=== PATIENT | female | born 1975 | race Caucasian/White ===

== ENCOUNTER 2018-05-21 08:25 | Inpatient (IN) | payer SELFPAY ==
[2018-05-21] MEDS ORDERED: NORMAL SALINE 1000 ML 1,000 ML IV ONE ×3 (08:52→10:12)
[2018-05-21] MEDS ORDERED: ONDANSETRON HCL INJ/PF 4 MG/2 ML SDV IV ONE (09:04)
[2018-05-21 09:46] LABS: HEMOGLOBIN 12.9 g/dL (12.0-15.5); MEAN CORPUSCULAR HEMOGLOBIN 26.1 pg (27.0-33.4); MEAN CORPUSCULAR HGB CONC 33.1 g/dL (32.0-36.0); MEAN CORPUSCULAR VOLUME 79 fl (80-97); PLATELET COUNT 323 10^3/uL (150-450); RED BLOOD COUNT 4.96 10^6/uL (3.72-5.28); RED CELL DISTRIBUTION WIDTH 14.6 % (11.5-14.0); WHITE BLOOD COUNT 17.7 10^3/uL (4.0-10.5)
[2018-05-21 10:09] LABS: ALANINE AMINOTRANSFERASE 20 U/L (9-52); ALBUMIN 4.1 g/dL (3.5-5.0); ALKALINE PHOSPHATASE 108 U/L (38-126); ANION GAP 19 (5-19); ASPARTATE AMINO TRANSFERASE 19 U/L (14-36); BILIRUBIN,DIRECT 0.2 mg/dL (0.0-0.4); BILIRUBIN,TOTAL 1.1 mg/dL (0.2-1.3); BLOOD UREA NITROGEN 11 mg/dL (7-20); CALCIUM 8.9 mg/dL (8.4-10.2); GLUCOSE 135 mg/dL (75-110); LIPASE 25.9 U/L (23-300); TOTAL PROTEIN 7.2 g/dL (6.3-8.2)
[2018-05-21 10:15] LABS: CARBON DIOXIDE 23 mmol/L (22-30); CHLORIDE 99 mmol/L (98-107); SODIUM 140.6 mmol/L (137-145)
[2018-05-21 10:18] LABS: ABSOLUTE LYMPHOCYTES# (MANUAL) 0.7 10^3/uL (0.5-4.7); ABSOLUTE MONOCYTES # (MANUAL) 0.9 10^3/uL (0.1-1.4); ABSOLUTE NEUTROPHILS# (MANUAL) 16.1 10^3/uL (1.7-8.2); BAND NEUTROPHILS % (MANUAL) 3 % (3-5); BASOPHILS % (MANUAL) 0 % (0-2); EOSINOPHILS % (MANUAL) 0 % (0-6); LYMPHOCYTES % (MANUAL) 4 % (13-45); MONOCYTES % (MANUAL) 5 % (3-13); PLATELET COMMENT ADEQUATE; RBC MORPHOLOGY COMMENT NORMO-CYTIC/CHROMIC; SEGMENTED NEUTROPHILS % (MAN) 88 % (42-78); TOTAL CELLS COUNTED 100; TOXIC GRANULATION SLIGHT
[2018-05-21 10:28] LABS: AMORPHOUS SEDIMENT,URINE TRACE /HPF; APPEARANCE,URINE CLOUDY; BILIRUBIN,URINE NEGATIVE (NEGATIVE); COLOR,URINE YELLOW; GLUCOSE, URINE NEGATIVE (NEGATIVE); KETONES,URINE TRACE mg/dL (NEGATIVE); LEUKOCYTE ESTERASE,URINE LARGE (NEGATIVE); NITRITE,URINE NEGATIVE (NEGATIVE); PROTEIN,URINE NEGATIVE (NEGATIVE); URINE SPECIFIC GRAVITY 1.016; UROBILINOGEN,URINE NEGATIVE mg/dL (<2.0)
[2018-05-21] MEDS ORDERED: CEFTRIAXONE 1 GM/D5W RTU 1 GM/50 ML RTUPB IV ONE (11:41)
[2018-05-21] MEDS ORDERED: ERTAPENEM SODIUM INJ 1 GM VIAL IV ONE (12:49)
--- NOTE | 2018-05-21 12:50 | RADIOLOGY REPORT (SQ) ---
EXAM DESCRIPTION: CT ABD/PELVIS WITH IV ORAL COMPLETED DATE/TIME: 05/21/2018 12:10 pm REASON FOR STUDY: hx sbo . Diffuse abdominal pain. COMPARISON: CT abdomen and pelvis 03/17/2013, 01/18/2013. TECHNIQUE: CT scan of the abdomen and pelvis performed using helical scanning technique with dynamic intravenous contrast injection. No oral contrast. Images reviewed with lung, soft tissue, and bone windows. Reconstructed coronal and sagittal MPR images reviewed. Delayed images for evaluation of the urinary system also acquired. All images stored on PACS. All CT scanners at this facility use dose modulation, iterative reconstruction, and/or weight based d osing when appropriate to reduce radiation dose to as low as reasonably achievable (ALARA). [facility]: Dose Right [facility]: CareDose [facility]: Dose Right [facility]: Teradose 4D [facility]: [email or web address] CONTRAST TYPE AND DOSE: contrast/concentration: Isovue 370.00 mg/ml; Total Contrast Delivered: 100.0 ml; Total Saline Delivered: 72.0 ml RENAL FUNCTION: Creatinine 0.67 RADIATION DOSE: CT Rad equipment meets quality standard of care and radiation dose reduction techniq ues were employed. CTDIvol: 19.5 - 21.1 mGy. DLP: 2324 mGy-cm.. LIMITATIONS: None. FINDINGS: LOWER CHEST: No consolidation or pleural effusion. LIVER: The liver is enlarged measuring 24.8 cm in craniocaudal dimension and has diffuse decreased at tenuation suggestive of fatty infiltration. SPLEEN: Normal size. PANCREAS: No significant calcifications. No adjacent inflammation or peripancreatic fluid collections . Pancreatic duct not dilated. GALLBLADDER: No identified stones by CT criteria. No inflammatory changes to suggest cholecystitis. ADRENAL GLANDS: No significant masses or asymmetry. RIGHT KIDNEY AND URETER: There is severe hydronephrosis with cortical thinning at the right kidney. Obstructing calculus at the ureteropelvic junction there is measuring approximately 1.5 cm in length (424 Hounsfield units). There are layering calcifications at the right kidney measuring up to 1 cm. LEFT KIDNEY AND URETER: No significant calcifications. No hydronephrosis or hydroureter. AORTA AND VESSELS: No abdominal aortic aneurysm or evidence for dissection. Renal arteries, SMA, parish ac without stenosis. RETROPERITONEUM: No retroperitoneal adenopathy, hemorrhage or masses. BOWEL AND PERITONEAL CAVITY: Oral contrast is seen in the stomach and small bowel loops. There is pn eumoperitoneum. There is trace ascites. APPENDIX: Not visualized. PELVIS: The urinary bladder is partially distended. The uterus is present. ABDOMINAL WALL: There is a small fat containing ventral hernia at the left upper quadrant. There is a large loculated ventral hernia in the left lower abdominal wall. BONES: Degenerative disc disease with vacuum disc phenomenon at L5-S1. IMPRESSION: 1. Pneumoperitoneum, worrisome for bowel perforation. Surgical consultation recommende d. 2. Large loculated ventral hernia at the left lower abdominal wall with no CT evidence for bowel obst ruction at this time. 3. Severe right-sided hydronephrosis with cortical thinning at the right kidney and obstructing calcu tom at the right UPJ. Right nephrolithiasis. 4. Hepatomegaly. Fatty infiltration of the liver. 5. Trace ascites. COMMENT: Pertinent positive or negative findings of the imaging study reported as a CRITICAL EXAM t o Dr. Jones At12:45 hours on 05/21/2018. Category of Critical Exam: Pneumoperitoneum, worrisome for bowel perforation. Surgical consultation recommended. TECHNICAL DOCUMENTATION: JOB ID: [id number] Quality ID # [id number]: Final reports with documentation of one or more dose reduction techniques (e.g., Au tomated exposure control, adjustment of the mA and/or kV according to patient size, use of iterative reconstruction technique) 2010 [employer]- All Rights Reserved Reading location - IP/workstation name: [email or web address]
--- NOTE | 2018-05-21 13:34 | ER Document Report ---
ED General - General Chief Complaint: Abdominal Pain Stated Complaint: VOMITING Time Seen by Provider: 05/21/18 08:50 TRAVEL OUTSIDE OF THE [place] IN LAST 30 DAYS: No - HPI Patient complains to provider of: Abdominal pain vomiting Notes: Patient coming in with extensive past surgical history positive for hernia repair then mesh removal along with formation of small bowel obstruction. Patient states today increased abdominal pain whenever she moves along with nausea vomiting. Patient states normal bowel movement yesterday patient states decreased stooling as only passed gas once that she has been awake this morning. Patient upon my evaluation is obese otherwise looks to be resting - Related Data Allergies/Adverse Reactions: No Known Allergies Allergy (Verified 05/21/18 08:28) Past Medical History - Social History Smoking Status: Never Smoker Chew tobacco use (# tins/day): No Frequency of alcohol use: None Drug Abuse: None Family History: Reviewed & Not Pertinent Patient has suicidal ideation: No Patient has homicidal ideation: No - Past Medical History Cardiac Medical History: Denies: Hx Coronary Artery Disease, Hx Heart Attack, Hx Hypertension Pulmonary Medical History: Denies: Hx Asthma, Hx Bronchitis, Hx COPD, Hx Pneumonia, Hx Tuberculosis Neurological Medical History: Denies: Hx Cerebrovascular Accident, Hx Seizures Endocrine Medical History: Denies: Hx Diabetes Mellitus Type 1, Hx Diabetes Mellitus Type 2 Renal/ Medical History: Denies: Hx Peritoneal Dialysis GI Medical History: Reports: Hx Gastroesophageal Reflux Disease, Hx Hiatal Hernia Musculoskeletal Medical History: Reports Hx Arthritis - Back Psychiatric Medical History: Reports: Hx Depression Denies: Hx Schizophrenia Past Surgical History: Reports: Hx Abdominal Surgery - gangrene, Hx Section, Hx Herniorrhaphy, Hx Orthopedic Surgery - Carpel tunnel, Hx Tubal Ligation. Denies: Hx Hysterectomy, Hx Pacemaker - Immunizations Immunizations up to date: Yes Hx Diphtheria, Pertussis, Tetanus Vaccination: Yes Review of Systems - Review of Systems Constitutional: No symptoms reported EENT: No symptoms reported Cardiovascular: No symptoms reported Respiratory: No symptoms reported Gastrointestinal: Abdominal pain Genitourinary: No symptoms reported Female Genitourinary: No symptoms reported Musculoskeletal: No symptoms reported Skin: No symptoms reported Hematologic/Lymphatic: No symptoms reported Neurological/Psychological: No symptoms reported -: Yes All other systems reviewed and negative Physical Exam - Vital signs Vitals: Temp Pulse Resp BP Pulse Ox 98.5 F 100 22 H 124/73 96 05/21/18 08:29 07/20/18 08:29 05/21/18 08:29 05/21/18 08:29 05/21/18 08:29 Interpretation: Normal - General General appearance: Appears well, Alert - HEENT Head: Normocephalic, Atraumatic Eyes: Normal Pupils: PERRL - Respiratory Respiratory status: No respiratory distress Chest status: Nontender Breath sounds: Normal Chest palpation: Normal - Cardiovascular Rhythm: Regular Heart sounds: Normal auscultation Murmur: No - Abdominal Inspection: Normal Distension: No distension Bowel sounds: Normal Tenderness: Tender - Diffusely tender with with rebound Organomegaly: No organomegaly - Back Back: Normal, Nontender - Extremities General upper extremity: Normal inspection, Nontender, Normal color, Normal ROM , Normal temperature General lower extremity: Normal inspection, Nontender, Normal color, Normal ROM , Normal temperature, Normal weight bearing. No: Melisa's sign - Neurological Neuro grossly intact: Yes Cognition: Normal Orientation: AAOx4 [place] Coma Scale Eye Opening: Spontaneous [place] Coma Scale Verbal: Oriented [place] Coma Scale Motor: Obeys Commands [place] Coma Scale Total: 15 Speech: Normal Motor strength normal: LUE, RUE, LLE, RLE Sensory: Normal - Psychological Associated symptoms: Normal affect, Normal mood - Skin Skin Temperature: Warm Skin Moisture: Dry Skin Color: Normal Course - Re-evaluation Re-evalutation: 05/21/18 15:08 Patient laboratory studies showed leukocytosis with elevated lactic acid patient urinalysis also shows signs of infection therefore initially were a dose of Rocephin unfortunately I did become involved in a very critical pediatric patient's case because of diffuse abdominal pain and hyperactive bowel sounds and patient's history was concerned about possible small bowel obstruction therefore CT scan with oral and IV contrast. While involved in P education was later notified by [address] Shook the patient had free air and that she contacted surgeon Dr. Rayo I was able to step with the pediatric code to inform the family also notified by the nursing staff that the patient had not received her antibiotics yet did strongly encourage nurse to give antibiotics and wound to change these to Invanz. Patient CAT scan was then reviewed by myself also showing obstructing right ureteral stone causing significant hydronephrosis with the infectious signs to be seen in the urine I did contact the urologist also along with Dr. Rayo evaluated patient. Patientien will be taken to the OR underlying sepsis due to bowel perforation and obstructing kidney stone. - Vital Signs Vital signs: Temp Pulse Resp BP Pulse Ox 100.2 F 84 24 H 112/66 97 05/21/18 10:57 05/21/18 10:57 05/21/18 10:57 05/21/18 10:57 05/21/18 10:57 - Laboratory Result Diagrams: 05/21/18 09:21 05/21/18 09:21 Laboratory results interpreted by me: 05/21/18 05/21/18 05/21/18 08:46 09:21 09:21 WBC 17.7 H MCV 79 L MCH 26.1 L RDW 14.6 H Seg Neuts % (Manual) 88 H Lymphocytes % (Manual) 4 L Abs Neuts (Manual) 16.1 H Glucose 135 H Lactic Acid Urine Ketones TRACE H Urine Blood SMALL H Ur Leukocyte Esterase LARGE H 05/21/18 05/21/18 09:21 13:30 WBC MCV MCH RDW Seg Neuts % (Manual) Lymphocytes % (Manual) Abs Neuts (Manual) Glucose Lactic Acid 5.4 H 3.3 H Urine Ketones Urine Blood Ur Leukocyte Esterase Critical Care Note - Critical Care Note Total time excluding time spent on procedures (mins): 35 Comments: Patient requiring multiple consults with bowel perforation septic obstructing kidney stone Discharge - Discharge Clinical Impression: Free intraperitoneal air, Obstructing right-sided kidney stone, Sepsis UTI (urinary tract infection) Qualifiers: Urinary tract infection type: site unspecified Hematuria presence: with hematuria Qualified Code(s): N39.0 - Urinary tract infection, site not specified Condition: Fair Disposition: ADMITTED INPATIENT Admitting Provider: Surgicalist - [facility] Unit Admitted: ICU
[2018-05-21] MEDS ORDERED: FENTANYL CITRATE INJ/PF 250 MCG/5 ML AMPULE ONE (13:44)
[2018-05-21] MEDS ORDERED: MIDAZOLAM 2 MG/2 ML INJ ONE ×2 (13:45→22:04)
[2018-05-21] MEDS ORDERED: PROPOFOL INJ 200 MG/20 ML VIAL IV ONE (13:45)
[2018-05-21] MEDS ORDERED: ACETAMINOPHEN 1,000 MG/100 ML RTUPB IV ONE (13:45)
[2018-05-21] MEDS ORDERED: HYDROMORPHONE HCL INJ/PF 2 MG/ML AMPULE ONE ×2 (14:35→18:58)
[2018-05-21] MEDS ORDERED: ROCURONIUM BROMIDE INJ 50 MG/5 ML VIAL IV ONE (14:37)
[2018-05-21] MEDS ORDERED: SUCCINYLCHOLINE CHLORIDE INJ 200 MG/10 ML VIAL ONE (14:37)
[2018-05-21] MEDS ORDERED: PROMETHAZINE HCL INJ 25 MG/1 ML VIAL IV PRN (14:59)
[2018-05-21] MEDS ORDERED: FENTANYL CITRATE INJ/PF 100 MCG/2 ML AMPUL IV PRN ×3 (14:59)
[2018-05-21] MEDS ORDERED: DIPHENHYDRAMINE HCL 50 MG/ML VIAL IV PRN (14:59)
[2018-05-21] MEDS ORDERED: MEPERIDINE HCL/PF INJ 25 MG/1 ML DISP.SYRIN IV PRN (14:59)
--- NOTE | 2018-05-21 16:03 | PDOC CONSULTATION ---
History of Present Illness Admission Date/PCP: 05/21/18 13:58 NOVA SOTELO MD Patient complains of: abdominal pain History of Present Illness: RHEA HONG is a 43 year old female Past Medical History Cardiac Medical History: Denies: Coronary Artery Disease, Myocardial Infarction, Hypertension Pulmonary Medical History: Denies: Asthma, Bronchitis, Chronic Obstructive Pulmonary Disease (COPD), Pneumonia, Tuberculosis Neurological Medical History: Denies: Seizures Endocrine Medical History: Denies: Diabetes Mellitus Type 1, Diabetes Mellitus Type 2 GI Medical History: Reports: Gastroesophageal Reflux Disease, Hiatal Hernia Musculoskeltal Medical History: Reports: Arthritis - Back Psychiatric Medical History: Reports: Depression Hematology: Denies: Anemia Past Surgical History Past Surgical History: Reports: Section, Herniorrhaphy, Orthopedic Surgery - Carpel tunnel, Tubal Ligation Denies: Hysterectomy, Pacemaker Social History Smoking Status: Never Smoker Hx Recreational Drug Use: No Hx Prescription Drug Abuse: No - Advance Directive Resuscitation Status: Full Code Family History Family History: Reviewed & Not Pertinent Parental Family History Reviewed: No Children Family History Reviewed: No Sibling(s) Family History Reviewed.: No Medication/Allergy Home Medications: Ibuprofen 800 mg PO PRN PRN 09/20/15 Iron Pill 1 tab PO DAILY 09/20/15 Pantoprazole Sodium [Protonix] 40 mg PO DAILY 09/20/15 Cephalexin Monohydrate [Keflex 500 mg Capsule] 500 mg PO QID #28 capsule Allergies/Adverse Reactions: No Known Allergies Allergy (Verified 05/21/18 08:28) Physical Exam Vital Signs: Temp Pulse Resp BP Pulse Ox 100.2 F 84 24 H 112/66 97 05/21/18 10:57 05/21/18 10:57 05/21/18 10:57 05/21/18 10:57 05/21/18 10:57 Results Laboratory Results: WBC is elevated but Cr wnl, 0.65 CT showed thinned out parenchyma of right kidney and UPJ stone obstructing.Left kidney is normal urine analysis nitirites negative Impressions: Abdomen/Pelvis CT 05/21/18 00:00 IMPRESSION: 1. Pneumoperitoneum, worrisome for bowel perforation. Surgical consultation recommended. 2. Large loculated ventral hernia at the left lower abdominal wall with no CT evidence for bowel obstruction at this time. 3. Severe right-sided hydronephrosis with cortical thinning at the right kidney and obstructing calculus at the right UPJ. Right nephrolithiasis. 4. Hepatomegaly. Fatty infiltration of the liver. 5. Trace ascites. Assessment & Plan - Diagnosis (1) UTI (urinary tract infection) Qualifiers: Urinary tract infection type: site unspecified Hematuria presence: without hematuria Qualified Code(s): N39.0 - Urinary tract infection, site not specified Is this a current diagnosis for this admission?: No
--- NOTE | 2018-05-21 16:14 | Operative Report ---
Operative Report PREOPERATIVE DIAGNOSIS: obstructed right kidney POSTOPERATIVE DIAGNOSIS: same OPERATION: cystoscopy, attempt at right retrograde and insertion of double j catheter SURGEON: HEATHER SOLITARIO ANESTHESIA: GA TISSUE REMOVED OR ALTERED: none COMPLICATIONS: none ESTIMATED BLOOD LOSS: none INTRAOPERATIVE FINDINGS: clear efflux was coming from left orifice, none from right, bladder mucosa wnl. right ureteral orifice is fibrotic obstructed PROCEDURE: with the patient under GA and after proper scrubbing and draping the 21 cystoscope sheath was introduced into the bladder , normal mucosa, left orifice seen wit clear efflux, righr orifice identified , guide wire was tried , then another curved guide wire and then injection of contrast with ky jelly all maneuvers did not work so at this point we inserted marie catheter 16 F and waited for the general surgeon to take over.
--- NOTE | 2018-05-21 23:55 | OPERATIVE REPORT E ---
Operative Report NAME: RHEA HONG : 1975 AGE: 43Y DATE OF SURGERY: 05/21/2018 ROOM: ED07 PREOPERATIVE DIAGNOSIS: PERFORATED BOWEL. POSTOPERATIVE DIAGNOSIS: PERFORATED ASCENDING COLON WITH PERITONITIS. TWO INCISIONAL HERNIAS. OPERATION: 1. Right hemicolectomy. 2. Repair of incisional hernias. 3. Lysis of adhesions, at least 45 minutes. SURGEON: EROS HERNANDEZ M.D. ANESTHESIA: General. INDICATION: This is a 43-year-old female complaining of severe pains around 8:00 p.m. last night, 05/20/2018. Pains got worse. She went to the ED, where a CT scan showed free air of the abdomen. The patient has diffuse tenderness from rebound. She was then immediately taken to the OR. PROCEDURE: She was then given general anesthesia. Dr. Michaels, the urologist, first did an attempted placement of right ureteral catheter. Unfortunately, he feels that this has been a chronic problem. The patient did have evidence of ureteral obstruction with hydronephrosis. The abdomen was then prepped and draped in the usual sterile fashion. Appropriate timeout was then called. A midline incision was then made from the xiphoid to the umbilicus. The fascia was then opened. The abdomen was explored with some difficulty because the patient has a large hernia in the lower abdomen just below the umbilicus and we went to that area initially. On further exploration, there appears to be an area of perforation in an area of the colon near the duodenum. Initially, I thought there was some perforation in the duodenum. However, further exploration of the duodenum with Marsha maneuver showed no perforation. The perforation was noted to be through the omentum. It was necessary to extend the incision distally below the umbilicus to have a better exposure of the perforated area. We eventually isolated the perforation at the area of the ascending colon and most of the splenic flexure. Most likely, perforations from diverticulitis since no evidence of incarcerated herniation was noted. There were a lot of food particles and light purulent material that was suctioned out. Eventually, the large bowel was better isolated. There was quite a big perforation that may have been initially loculated. The patient did have an area of light purulent material around the liver and most of the abdomen. The patient had a lot of adhesions. The large bowel was then followed towards the area of the cecum by lysing a lot of adhesions. Next, the small bowel was explored and the distal ileum appears to have previous resection with anastomosis and there is an area of valdemar. This area may not be ideal for anastomosis. Therefore, the distal ileum was then divided with an Endo-ABDOULAYE. The large intestine also was divided with an Endo-ABDOULAYE right at the area of the right transverse colon. The mesentery was then divided with the use of LigaSure. Next, the small bowel was then dissected and there was some difficulty dissecting around the area of the hernia site. Adhesions were lysed with some difficulty. No evidence of incarceration, however, was noted. There was a small amount of light purulent material. The small bowel was then dissected from the area of the ileum, all the way up into the ligament of Treitz, taking me at least 45 minutes to release the bowel. The abdominal cavity was then copiously irrigated with at least 6 liters of saline. An NG tube was placed by Anesthesia, and I positioned it into the distal stomach. Following this, the hernia sac at the lower abdomen was then dissected, and most of it excised. The large intestine was then anastomosed to the small intestine in a functional [id number] manner with valdemar and closed with a TA-60. Two sutures of 3-0 silk were placed at the distal end to prevent destruction of the staple line. Next, the mesentery was then closed with running suture using 2-0 Vicryl. Next, a Kevon-Garcia drain was then brought through stab wound in the right upper quadrant and brought to the area of the transverse colon, where the anastomosis is. There was an area of herniation close to the midepigastric area that was excised and the defect closed with [id number] suture using 0 Prolene. Next, the fascia was then closed with running suture using #1 Prolene starting at both ends and tying together in the area of the umbilicus site. There was some question of getting a good fascia at the lower abdomen and we were able to close the whole fascia with the bowel and not much pressure. The patient, however, needs to be followed closely in the intensive care unit to make sure she does not develop any compartment syndrome. At this point, the drain was then anchored to the skin with 2-0 Prolene and Wound Vac was used to cover the skin and subcu incision. We were able to use two large Wound Vac foams put end to end since the incision was quite long. The patient tolerated the procedure quite well. Estimated blood loss about 300 mL. Needle, instrument, and sponge count all correct. The patient was brought to the intensive care unit, intubated, in guarded condition. DICTATING PHYSICIAN: EROS HERNANDEZ M.D. [id number] PHY#: [id number] ID: [id number] JOB#: [id number] ACCT: [id number] cc:EROS HERNANDEZ M.D. >
[2018-05-22] MEDS ORDERED: NOREPINEPHRINE BITARTRATE INJ/PF 4 MG/4 ML SDV IV ONE (00:08)
[2018-05-22] MEDS ORDERED: ERTAPENEM SODIUM INJ 1 GM VIAL IV PRN (00:53)
[2018-05-22] MEDS ORDERED: ERTAPENEM SODIUM 1 GM in NORMAL SALINE 50 ML IV ONE (01:00)
[2018-05-22] MEDS: NORMAL SALINE 1000 ML 1,000 ML IV SCH ×4 (03:51→18:01)
[2018-05-22] MEDS: PROPOFOL 1,000 MG/100 ML INFUS..BTL IV PRN ×6 (03:52→22:07)
[2018-05-22] MEDS: MORPHINE SULFATE 10 MG/ML INJ IV PRN ×2 (03:53→22:20)
[2018-05-22 04:09] LABS: ABSOLUTE LYMPHOCYTES (AUTO) 1.5 10^3/uL (0.5-4.7); ABSOLUTE MONOCYTES (AUTO) 0.8 10^3/uL (0.1-1.4); BASOPHILS % (AUTO) 0.3 % (0-2); EOSINOPHILS % (AUTO) 0.1 % (0-6); HEMATOCRIT 37.3 % (36.0-47.0); HEMOGLOBIN 12.6 g/dL (12.0-15.5); LYMPHOCYTES % (AUTO) 10.4 % (13-45); MEAN CORPUSCULAR HEMOGLOBIN 26.8 pg (27.0-33.4); MEAN CORPUSCULAR HGB CONC 33.9 g/dL (32.0-36.0); MEAN CORPUSCULAR VOLUME 79 fl (80-97); MONOCYTES % (AUTO) 5.7 % (3-13); PLATELET COUNT 348 10^3/uL (150-450); RED BLOOD COUNT 4.71 10^6/uL (3.72-5.28); RED CELL DISTRIBUTION WIDTH 15.3 % (11.5-14.0); SEGMENTED NEUTROPHILS % (AUTO) 83.5 % (42-78); TOTAL CELLS COUNTED % (AUTO) 100 %; WHITE BLOOD COUNT 14.3 10^3/uL (4.0-10.5)
[2018-05-22 04:21] LABS: ALANINE AMINOTRANSFERASE 44 U/L (9-52); ALBUMIN 2.3 g/dL (3.5-5.0); ALKALINE PHOSPHATASE 71 U/L (38-126); ANION GAP 11 (5-19); ASPARTATE AMINO TRANSFERASE 43 U/L (14-36); BILIRUBIN,DIRECT 0.4 mg/dL (0.0-0.4); BILIRUBIN,TOTAL 1.1 mg/dL (0.2-1.3); BLOOD UREA NITROGEN 13 mg/dL (7-20); CALCIUM 7.1 mg/dL (8.4-10.2); CARBON DIOXIDE 21 mmol/L (22-30); CHLORIDE 107 mmol/L (98-107); GLUCOSE 155 mg/dL (75-110); POTASSIUM 4.2 mmol/L (3.6-5.0); SODIUM 138.8 mmol/L (137-145); TOTAL PROTEIN 4.8 g/dL (6.3-8.2)
[2018-05-22] MEDS: PANTOPRAZOLE SODIUM 40 MG VIAL IV SCH ×2 (09:49→22:04)
[2018-05-22] MEDS: ENOXAPARIN SODIUM INJ 40 MG/0.4 ML DISP.SYRIN SUBCUT SCH (09:50)
[2018-05-22] MEDS: DEXTROSE 5%-WATER 250 ML with NOREPINEPHRINE BITARTRATE 4 MG IV PRN ×2 (10:45)
--- NOTE | 2018-05-22 20:30 | PDOC PROGRESS REPORT ---
Subjective Progress Note for:: 05/22/18 Subjective:: Still intubated Reason For Visit: PERFORATED ASCENDING COLON DUE TO DIVERTICULITIS Physical Exam Vital Signs: Temp Pulse Resp BP Pulse Ox 100.7 F H 90 13 103/67 100 05/22/18 20:00 05/22/18 18:21 05/22/18 18:21 05/22/18 18:21 05/22/18 18:21 Intake & Output 05/21/18 05/22/18 05/23/18 06:59 06:59 06:59 Intake Total 8120 2169 Output Total 6255 465 Balance 1865 1704 Weight 104.8 kg Exam: abd is soft. Wound Vac in place Results Laboratory Results: 05/22/18 03:51 05/22/18 03:51 05/22/18 05/22/18 05/22/18 03:51 03:51 03:51 WBC 14.3 H RBC 4.71 Hgb 12.6 Hct 37.3 MCV 79 L MCH 26.8 L MCHC 33.9 RDW 15.3 H Plt Count 348 Seg Neutrophils % 83.5 H Lymphocytes % 10.4 L Monocytes % 5.7 Eosinophils % 0.1 Basophils % 0.3 Absolute Neutrophils 12.0 H Absolute Lymphocytes 1.5 Absolute Monocytes 0.8 Absolute Eosinophils 0.0 Absolute Basophils 0.0 Sodium 138.8 Potassium 4.2 Chloride 107 Carbon Dioxide 21 L Anion Gap 11 BUN 13 Creatinine 0.83 Est GFR ( Amer) > 60 Est GFR (Non-Af Amer) > 60 Glucose 155 H Calcium 7.1 L Total Bilirubin 1.1 AST 43 H ALT 44 Alkaline Phosphatase 71 Total Protein 4.8 L Albumin 2.3 L Triglycerides 269 H Impressions: Abdomen/Pelvis CT 05/21/18 00:00 IMPRESSION: 1. Pneumoperitoneum, worrisome for bowel perforation. Surgical consultation recommended. 2. Large loculated ventral hernia at the left lower abdominal wall with no CT evidence for bowel obstruction at this time. 3. Severe right-sided hydronephrosis with cortical thinning at the right kidney and obstructing calculus at the right UPJ. Right nephrolithiasis. 4. Hepatomegaly. Fatty infiltration of the liver. 5. Trace ascites. Assessment & Plan - Time Time Spent with patient: 15-24 minutes - Plan Summary Plan Summary: Have consulted and D/W hospitalist Dr Toure. They will take care of the Vent and medical issues. Patient is fairly stable right now Continue IV antibiotics. Hospitalist will change antibiotics for better coverage with Zosyn
[2018-05-22] MEDS ORDERED: ERTAPENEM SODIUM 1 GM in NORMAL SALINE 50 ML IV SCH (22:00)
[2018-05-23] MEDS: PROPOFOL 1,000 MG/100 ML INFUS..BTL IV PRN ×8 (00:14→21:36)
[2018-05-23] MEDS: NORMAL SALINE 1000 ML 1,000 ML IV SCH ×4 (00:15→17:03)
[2018-05-23 04:48] LABS: ABSOLUTE BASOPHILS # (AUTO) 0.1 10^3/uL (0.0-0.2); ABSOLUTE EOSINOPHILS # (AUTO) 0.1 10^3/uL (0.0-0.6); ABSOLUTE LYMPHOCYTES (AUTO) 1.5 10^3/uL (0.5-4.7); ABSOLUTE MONOCYTES (AUTO) 0.8 10^3/uL (0.1-1.4); ABSOLUTE NEUT (AUTO) 8.3 10^3/uL (1.7-8.2); BASOPHILS % (AUTO) 0.7 % (0-2); EOSINOPHILS % (AUTO) 0.7 % (0-6); HEMATOCRIT 29.5 % (36.0-47.0); HEMOGLOBIN 9.9 g/dL (12.0-15.5); LYMPHOCYTES % (AUTO) 14.3 % (13-45); MEAN CORPUSCULAR HEMOGLOBIN 26.5 pg (27.0-33.4); MEAN CORPUSCULAR HGB CONC 33.6 g/dL (32.0-36.0); MEAN CORPUSCULAR VOLUME 79 fl (80-97); MONOCYTES % (AUTO) 7.3 % (3-13); PLATELET COUNT 267 10^3/uL (150-450); RED BLOOD COUNT 3.74 10^6/uL (3.72-5.28); RED CELL DISTRIBUTION WIDTH 15.3 % (11.5-14.0); TOTAL CELLS COUNTED % (AUTO) 100 %; WHITE BLOOD COUNT 10.8 10^3/uL (4.0-10.5)
[2018-05-23 04:52] LABS: ARTERIAL BLOOD BASE EXCESS 0 mmol/L; ARTERIAL BLOOD H2CO3 1.23 mmol/L (1.05-1.35); ARTERIAL BLOOD HCO3 24.8 mmol/L (20-26); ARTERIAL BLOOD O2 SATURATION 98.2 % (94-98); ARTERIAL BLOOD PCO2 40.7 mmHg (35-45); ARTERIAL BLOOD PO2 114.9 mmHg (80-100)
[2018-05-23 04:54] LABS: ALANINE AMINOTRANSFERASE 28 U/L (9-52); ALBUMIN 2.2 g/dL (3.5-5.0); ALKALINE PHOSPHATASE 89 U/L (38-126); ANION GAP 8 (5-19); ASPARTATE AMINO TRANSFERASE 25 U/L (14-36); BILIRUBIN,DIRECT 0.3 mg/dL (0.0-0.4); BILIRUBIN,TOTAL 0.3 mg/dL (0.2-1.3); BLOOD UREA NITROGEN 12 mg/dL (7-20); CARBON DIOXIDE 23 mmol/L (22-30); CHLORIDE 108 mmol/L (98-107); GLUCOSE 121 mg/dL (75-110); POTASSIUM 3.6 mmol/L (3.6-5.0); SODIUM 138.8 mmol/L (137-145); TOTAL PROTEIN 4.7 g/dL (6.3-8.2)
[2018-05-23 05:02] LABS: ARTERIAL BLOOD FIO2 30%
[2018-05-23 05:09] LABS: CALCIUM 6.7 mg/dL (8.4-10.2)
[2018-05-23] MEDS: DEXTROSE 5%-WATER 250 ML with NOREPINEPHRINE BITARTRATE 4 MG IV PRN ×2 (05:12)
[2018-05-23] MEDS: PANTOPRAZOLE SODIUM 40 MG VIAL IV SCH ×2 (09:16→21:57)
[2018-05-23] MEDS: ENOXAPARIN SODIUM INJ 40 MG/0.4 ML DISP.SYRIN SUBCUT SCH (09:17)
[2018-05-23] MEDS: PIPERACILLIN SODIUM/TAZOBACTAM 4.5 GM in NORMAL SALINE 100 ML IV SCH ×2 (11:52→17:02)
--- NOTE | 2018-05-23 14:15 | RADIOLOGY REPORT (SQ) ---
EXAM DESCRIPTION: CHEST SINGLE VIEW COMPLETED DATE/TIME: 05/23/2018 12:31 pm REASON FOR STUDY: ET and NG Tube Placement COMPARISON: 07/13/2013. EXAM PARAMETERS: NUMBER OF VIEWS: One view. TECHNIQUE: Single frontal radiographic view of the chest acquired. RADIATION DOSE: NA LIMITATIONS: None. FINDINGS: LUNGS AND PLEURA: No acute infiltrate or effusion. MEDIASTINUM AND HILAR STRUCTURES: No masses. Contour normal. HEART AND VASCULAR STRUCTURES: Cardiomegaly. No acute infiltrates or effusions. BONES: No acute findings. HARDWARE: Endotracheal tube in right mainstem bronchus. The tube could be retracted 2 cm. NG tube overlying stomach. OTHER: No other significant finding. IMPRESSION: Cardiomegaly. Endotracheal tube low in position. A could be retracted 2 cm NG tube in good position. COMMENT: Attempts to contact the Radiology Department, the hospitalist phone number listed on the re quest were unsuccessful. TECHNICAL DOCUMENTATION: JOB ID: [id number] [email or web address]- All Rights Reserved Reading location - IP/workstation name: [email or web address]
--- NOTE | 2018-05-23 16:20 | PDOC PROGRESS REPORT ---
Subjective Progress Note for:: 05/23/18 Subjective:: Patient is resting in bed she is on full mechanical ventilation. She is postop #2. Operated for ascending colon perforation and peritonitis. Her vital signs are stable and she has been producing adequate urine. Her antibiotics is switched from ertapenem to Zosyn. Reason For Visit: PERFORATED ASCENDING COLON DUE TO DIVERTICULITIS Physical Exam Vital Signs: Temp Pulse Resp BP Pulse Ox 100.4 F 79 20 103/55 L 100 05/23/18 12:00 05/23/18 10:00 05/23/18 14:12 05/23/18 14:12 05/23/18 14:12 Intake & Output 05/22/18 05/23/18 05/24/18 06:59 06:59 06:59 Intake Total 8120 4405 Output Total 6255 1125 465 Balance 1865 3280 -465 Weight 104.8 kg 107.2 kg Results Laboratory Results: 05/23/18 04:25 05/23/18 04:25 05/22/18 05/23/18 05/23/18 03:51 04:25 04:25 WBC 10.8 H RBC 3.74 Hgb 9.9 L D Hct 29.5 L MCV 79 L MCH 26.5 L MCHC 33.6 RDW 15.3 H Plt Count 267 Seg Neutrophils % 77.0 Lymphocytes % 14.3 Monocytes % 7.3 Eosinophils % 0.7 Basophils % 0.7 Absolute Neutrophils 8.3 H Absolute Lymphocytes 1.5 Absolute Monocytes 0.8 Absolute Eosinophils 0.1 Absolute Basophils 0.1 Carbonic Acid HCO3/H2CO3 Ratio ABG pH ABG pCO2 ABG pO2 ABG HCO3 ABG O2 Saturation ABG Base Excess FiO2 Sodium 138.8 Potassium 3.6 Chloride 108 H Carbon Dioxide 23 Anion Gap 8 BUN 12 Creatinine 0.69 Est GFR ( Amer) > 60 Est GFR (Non-Af Amer) > 60 Glucose 121 H Calcium 6.7 L* Ionized Calcium Vinny Total Bilirubin 0.3 AST 25 ALT 28 Alkaline Phosphatase 89 Total Protein 4.7 L Albumin 2.2 L Triglycerides 269 H 05/23/18 05/23/18 04:40 08:17 WBC RBC Hgb Hct MCV MCH MCHC RDW Plt Count Seg Neutrophils % Lymphocytes % Monocytes % Eosinophils % Basophils % Absolute Neutrophils Absolute Lymphocytes Absolute Monocytes Absolute Eosinophils Absolute Basophils Carbonic Acid 1.23 HCO3/H2CO3 Ratio 20:1 ABG pH 7.40 ABG pCO2 40.7 ABG pO2 114.9 H ABG HCO3 24.8 ABG O2 Saturation 98.2 H ABG Base Excess 0 FiO2 30% Sodium Potassium Chloride Carbon Dioxide Anion Gap BUN Creatinine Est GFR ( Amer) Est GFR (Non-Af Amer) Glucose Calcium Ionized Calcium Vinny 1.01 L Total Bilirubin AST ALT Alkaline Phosphatase Total Protein Albumin Triglycerides Impressions: Abdomen/Pelvis CT 05/21/18 00:00 IMPRESSION: 1. Pneumoperitoneum, worrisome for bowel perforation. Surgical consultation recommended. 2. Large loculated ventral hernia at the left lower abdominal wall with no CT evidence for bowel obstruction at this time. 3. Severe right-sided hydronephrosis with cortical thinning at the right kidney and obstructing calculus at the right UPJ. Right nephrolithiasis. 4. Hepatomegaly. Fatty infiltration of the liver. 5. Trace ascites. Chest X-Ray 05/23/18 12:11 IMPRESSION: Cardiomegaly. Endotracheal tube low in position. A could be retracted 2 cm NG tube in good position. Assessment & Plan - Diagnosis (1) Perforated ascending colon, peritonitis Is this a current diagnosis for this admission?: Yes Plan: Patient has been on normal saline at rate of 150 mL/h. Continue Zosyn (2) Rt Nephrolithiasis and hydronephrosis Is this a current diagnosis for this admission?: Yes Plan: Definitive management per urologist. (3) Complicated UTI (urinary tract infection) Is this a current diagnosis for this admission?: Yes Plan: Zosyn will take care of it.
--- NOTE | 2018-05-23 20:55 | PDOC PROGRESS REPORT ---
Subjective Progress Note for:: 05/23/18 Subjective:: Still intubated but fairly stable with good urine output. She is on POD 2. Post right hemicolectomy for perforated ascending colon likely due to diverticulitis Reason For Visit: PERFORATED ASCENDING COLON DUE TO DIVERTICULITIS Physical Exam Vital Signs: Temp Pulse Resp BP Pulse Ox 98.6 F 79 12 101/56 L 98 05/23/18 20:00 05/23/18 10:00 05/23/18 18:57 05/23/18 18:57 05/23/18 18:57 Intake & Output 05/22/18 05/23/18 05/24/18 06:59 06:59 06:59 Intake Total 8120 4405 2155 Output Total 6255 1125 800 Balance 1865 3280 1355 Weight 104.8 kg 107.2 kg Exam: Still intubated. abd is soft. Wound Vac over the whole incison in place. LUC drained 60 ccs serosanguinous fluid Results Laboratory Results: 05/23/18 04:25 05/23/18 04:25 05/23/18 05/23/18 05/23/18 04:25 04:25 04:40 WBC 10.8 H RBC 3.74 Hgb 9.9 L D Hct 29.5 L MCV 79 L MCH 26.5 L MCHC 33.6 RDW 15.3 H Plt Count 267 Seg Neutrophils % 77.0 Lymphocytes % 14.3 Monocytes % 7.3 Eosinophils % 0.7 Basophils % 0.7 Absolute Neutrophils 8.3 H Absolute Lymphocytes 1.5 Absolute Monocytes 0.8 Absolute Eosinophils 0.1 Absolute Basophils 0.1 Carbonic Acid 1.23 HCO3/H2CO3 Ratio 20:1 ABG pH 7.40 ABG pCO2 40.7 ABG pO2 114.9 H ABG HCO3 24.8 ABG O2 Saturation 98.2 H ABG Base Excess 0 FiO2 30% Sodium 138.8 Potassium 3.6 Chloride 108 H Carbon Dioxide 23 Anion Gap 8 BUN 12 Creatinine 0.69 Est GFR ( Amer) > 60 Est GFR (Non-Af Amer) > 60 Glucose 121 H Calcium 6.7 L* Ionized Calcium Vinny Total Bilirubin 0.3 AST 25 ALT 28 Alkaline Phosphatase 89 Total Protein 4.7 L Albumin 2.2 L 05/23/18 08:17 WBC RBC Hgb Hct MCV MCH MCHC RDW Plt Count Seg Neutrophils % Lymphocytes % Monocytes % Eosinophils % Basophils % Absolute Neutrophils Absolute Lymphocytes Absolute Monocytes Absolute Eosinophils Absolute Basophils Carbonic Acid HCO3/H2CO3 Ratio ABG pH ABG pCO2 ABG pO2 ABG HCO3 ABG O2 Saturation ABG Base Excess FiO2 Sodium Potassium Chloride Carbon Dioxide Anion Gap BUN Creatinine Est GFR ( Amer) Est GFR (Non-Af Amer) Glucose Calcium Ionized Calcium Vinny 1.01 L Total Bilirubin AST ALT Alkaline Phosphatase Total Protein Albumin Impressions: Abdomen/Pelvis CT 05/21/18 00:00 IMPRESSION: 1. Pneumoperitoneum, worrisome for bowel perforation. Surgical consultation recommended. 2. Large loculated ventral hernia at the left lower abdominal wall with no CT evidence for bowel obstruction at this time. 3. Severe right-sided hydronephrosis with cortical thinning at the right kidney and obstructing calculus at the right UPJ. Right nephrolithiasis. 4. Hepatomegaly. Fatty infiltration of the liver. 5. Trace ascites. Chest X-Ray 05/23/18 12:11 IMPRESSION: Cardiomegaly. Endotracheal tube low in position. A could be retracted 2 cm NG tube in good position. Assessment & Plan - Time Time Spent with patient: 15-24 minutes - Inpatient Certification Medical Necessity: Need For IV Fluids, Need For Continuous Telemetry Monitoring , Need for IV Antibiotics, Other - Intubated - Plan Summary Plan Summary: Hopefully can be extubated tomorrow Continue NGT and antibiotics
[2018-05-23] MEDS: MORPHINE SULFATE 10 MG/ML INJ IV PRN (21:57)
--- NOTE | 2018-05-23 22:53 | RADIOLOGY REPORT (SQ) ---
EXAM DESCRIPTION: CHEST SINGLE VIEW COMPLETED DATE/TIME: 05/23/2018 10:12 pm REASON FOR STUDY: ETT placement COMPARISON: Chest x-ray 05/23/2018 at 12:16 hours EXAM PARAMETERS: NUMBER OF VIEWS: One view TECHNIQUE: Single frontal radiograph of the chest on 05/23/2018 at 22:03 hours. RADIATION DOSE: N/A LIMITATIONS: None. FINDINGS: TEMPORARY SUPPORT DEVICES:Low lying endotracheal tube with the tip at the alba oriented towards the right mainstem bronchus. An enteric tube courses along the midline and terminates under the diaphragm, its tip is not visualized on this exam. LUNGS AND PLEURA: There are bibasilar airspace opacities. No sizable pleural effusion or pneumothora x. MEDIASTINUM AND HILAR STRUCTURES: No masses. Contour normal. HEART AND VASCULAR STRUCTURES: The heart is enlarged. No overt vascular congestion. BONES: No acute findings. IMPRESSION: 1. Cardiomegaly. Bibasilar airspace opacities, may represent atelectasis or pneumonia. 2. Low lying endotracheal tube, retraction by 2-3 cm recommended. RECOMMENDATIONS: Retraction of the endotracheal tube. COMMENT: Pertinent findings on the imaging study reported as a CRITICAL RESULT to EROS HERNANDEZ MD at22:46 hrs on 05/23/2018. Category of Critical Result: Low lying endotracheal tube. TECHNICAL DOCUMENTATION: JOB ID: [id number] [place]-64 2010 [employer]- All Rights Reserved Reading location - IP/workstation name: [email or web address]
[2018-05-24] MEDS: PIPERACILLIN SODIUM/TAZOBACTAM 4.5 GM in NORMAL SALINE 100 ML IV SCH ×5 (00:16→23:52)
[2018-05-24] MEDS: NORMAL SALINE 1000 ML 1,000 ML IV SCH ×4 (00:17→23:51)
--- NOTE | 2018-05-24 00:18 | RADIOLOGY REPORT (SQ) ---
EXAM DESCRIPTION: XR CHEST 1 VIEW COMPLETED DATE/TME: 05/23/2018 23:34 CLINICAL HISTORY: 43 years, Female, ETT placement COMPARISON: 05/23/2018 NUMBER OF VIEWS: One TECHNIQUE: AP view of the chest LIMITATIONS: None. FINDINGS: The endotracheal tube has been retracted and now terminates 3.1 cm above the alba. The nasogastric tube remains in satisfactory position. There is a retrocardiac airspace opacity. The heart is enlarged. There is no pneumothorax or pleural effusion. IMPRESSION: Satisfactory position of the endotracheal tube. Retrocardiac airspace opacity 2010 [employer]- All Rights Reserved
[2018-05-24 03:48] LABS: ABSOLUTE BASOPHILS # (AUTO) 0.1 10^3/uL (0.0-0.2); ABSOLUTE EOSINOPHILS # (AUTO) 0.2 10^3/uL (0.0-0.6); ABSOLUTE LYMPHOCYTES (AUTO) 1.3 10^3/uL (0.5-4.7); ABSOLUTE MONOCYTES (AUTO) 0.5 10^3/uL (0.1-1.4); ABSOLUTE NEUT (AUTO) 5.1 10^3/uL (1.7-8.2); BASOPHILS % (AUTO) 0.9 % (0-2); EOSINOPHILS % (AUTO) 3.1 % (0-6); HEMATOCRIT 25.5 % (36.0-47.0); HEMOGLOBIN 8.6 g/dL (12.0-15.5); LYMPHOCYTES % (AUTO) 17.6 % (13-45); MEAN CORPUSCULAR HEMOGLOBIN 26.8 pg (27.0-33.4); MEAN CORPUSCULAR HGB CONC 33.7 g/dL (32.0-36.0); MEAN CORPUSCULAR VOLUME 80 fl (80-97); MONOCYTES % (AUTO) 7.2 % (3-13); PLATELET COUNT 232 10^3/uL (150-450); RED BLOOD COUNT 3.21 10^6/uL (3.72-5.28); SEGMENTED NEUTROPHILS % (AUTO) 71.2 % (42-78); TOTAL CELLS COUNTED % (AUTO) 100 %; WHITE BLOOD COUNT 7.2 10^3/uL (4.0-10.5)
[2018-05-24 04:00] LABS: ANION GAP 9 (5-19); BLOOD UREA NITROGEN 9 mg/dL (7-20); CARBON DIOXIDE 20 mmol/L (22-30); CHLORIDE 112 mmol/L (98-107); GLUCOSE 89 mg/dL (75-110); POTASSIUM 3.3 mmol/L (3.6-5.0); SODIUM 140.5 mmol/L (137-145)
[2018-05-24 06:33] LABS: CALCIUM 6.7 mg/dL (8.4-10.2)
[2018-05-24] MEDS: ENOXAPARIN SODIUM INJ 40 MG/0.4 ML DISP.SYRIN SUBCUT SCH (10:13)
[2018-05-24] MEDS: PANTOPRAZOLE SODIUM 40 MG VIAL IV SCH ×2 (10:14→22:07)
--- NOTE | 2018-05-24 10:30 | PDOC PROGRESS REPORT ---
Subjective Progress Note for:: 05/24/18 Subjective:: Intubated and sedated. But when sedation has decreased patient has been awake and cooperative. Reason For Visit: PERFORATED ASCENDING COLON DUE TO DIVERTICULITIS Physical Exam Vital Signs: Temp Pulse Resp BP Pulse Ox 99.0 F 77 13 92/61 L 98 05/24/18 07:27 05/23/18 22:00 05/24/18 07:27 05/24/18 07:27 05/24/18 07:27 Intake & Output 05/23/18 05/24/18 05/25/18 06:59 06:59 06:59 Intake Total 4405 4559 Output Total 1125 1200 225 Balance 3280 3359 -225 Weight 107.2 kg 107.8 kg General appearance: PRESENT: no acute distress Respiratory exam: PRESENT: clear to auscultation chery Cardiovascular exam: PRESENT: RRR GI/Abdominal exam: PRESENT: other - Soft, nondistended, wound VAC in place. No apparent tenderness. Results Laboratory Results: 05/24/18 03:36 05/24/18 03:36 05/24/18 05/24/18 05/24/18 03:36 03:36 03:36 WBC 7.2 RBC 3.21 L Hgb 8.6 L Hct 25.5 L MCV 80 MCH 26.8 L MCHC 33.7 RDW 15.0 H Plt Count 232 Seg Neutrophils % 71.2 Lymphocytes % 17.6 Monocytes % 7.2 Eosinophils % 3.1 Basophils % 0.9 Absolute Neutrophils 5.1 Absolute Lymphocytes 1.3 Absolute Monocytes 0.5 Absolute Eosinophils 0.2 Absolute Basophils 0.1 Sodium 140.5 Potassium 3.3 L Chloride 112 H Carbon Dioxide 20 L Anion Gap 9 BUN 9 Creatinine 0.68 Est GFR ( Amer) > 60 Est GFR (Non-Af Amer) > 60 Glucose 89 Calcium 6.7 L* Albumin 1.9 L Impressions: Abdomen/Pelvis CT 05/21/18 00:00 IMPRESSION: 1. Pneumoperitoneum, worrisome for bowel perforation. Surgical consultation recommended. 2. Large loculated ventral hernia at the left lower abdominal wall with no CT evidence for bowel obstruction at this time. 3. Severe right-sided hydronephrosis with cortical thinning at the right kidney and obstructing calculus at the right UPJ. Right nephrolithiasis. 4. Hepatomegaly. Fatty infiltration of the liver. 5. Trace ascites. Chest X-Ray 05/23/18 23:34 IMPRESSION: Satisfactory position of the endotracheal tube. Retrocardiac airspace opacity 2010 [employer]- All Rights Reserved Assessment & Plan - Diagnosis (1) Perforated ascending colon, peritonitis Is this a current diagnosis for this admission?: Yes Plan: Status post right hemicolectomy. Patient looks good. She is off of pressors and has been hemodynamically stable with excellent urine output. Her H&H has decreased but likely due to hemodilution based upon decreased BUN, good urine output, and hemodynamic stability. Will take her off the sedation and will likely extubate today. will check h/h later today
[2018-05-24] MEDS ORDERED: POTASSI CL 20 MEQ/50 ML RIDER 20 MEQ/50 ML RTUPB IV ONE (12:20)
[2018-05-24] MEDS ORDERED: MORPHINE SULFATE 10 MG/ML INJ IV PRN (12:29)
[2018-05-24] MEDS: POTASSIUM CHLORIDE 20 MEQ/50 ML RTU IV SCH ×2 (14:38→16:57)
[2018-05-24 15:59] LABS: HEMATOCRIT 28.2 % (36.0-47.0); HEMOGLOBIN 9.4 g/dL (12.0-15.5); MEAN CORPUSCULAR HEMOGLOBIN 26.5 pg (27.0-33.4); MEAN CORPUSCULAR HGB CONC 33.5 g/dL (32.0-36.0); MEAN CORPUSCULAR VOLUME 79 fl (80-97); PLATELET COUNT 266 10^3/uL (150-450); RED BLOOD COUNT 3.57 10^6/uL (3.72-5.28); WHITE BLOOD COUNT 6.4 10^3/uL (4.0-10.5)
--- NOTE | 2018-05-24 16:41 | PDOC PROGRESS REPORT ---
Subjective Progress Note for:: 05/24/18 Subjective:: Patient has been doing good and improving steadily. She is currently off sedation and pressors. Her vital signs are within normal limits her labs also okay except anemia due to hemodilution and mild hypokalemia and moderately severe hyperkalemia and hypocalcemia. Later this morning patient is extubated and tolerated extubation Reason For Visit: PERFORATED ASCENDING COLON DUE TO DIVERTICULITIS Physical Exam Vital Signs: Temp Pulse Resp BP Pulse Ox 99.7 F 70 19 114/73 100 05/24/18 15:00 05/24/18 10:00 05/24/18 15:00 05/24/18 14:58 05/24/18 15:00 Intake & Output 05/23/18 05/24/18 05/25/18 06:59 06:59 06:59 Intake Total 4405 4559 Output Total 1125 1200 700 Balance 3280 3359 -700 Weight 107.2 kg 107.8 kg 107.8 kg General appearance: PRESENT: no acute distress Head exam: PRESENT: atraumatic Eye exam: PRESENT: conjunctiva pink Mouth exam: PRESENT: moist Neck exam: ABSENT: carotid bruit, JVD, lymphadenopathy, thyromegaly Respiratory exam: PRESENT: clear to auscultation chery. ABSENT: rales, rhonchi, wheezes Cardiovascular exam: PRESENT: RRR. ABSENT: diastolic murmur, rubs, systolic murmur GI/Abdominal exam: PRESENT: soft Results Laboratory Results: 05/24/18 15:54 05/24/18 03:36 05/24/18 05/24/18 05/24/18 03:36 03:36 03:36 WBC 7.2 RBC 3.21 L Hgb 8.6 L Hct 25.5 L MCV 80 MCH 26.8 L MCHC 33.7 RDW 15.0 H Plt Count 232 Seg Neutrophils % 71.2 Lymphocytes % 17.6 Monocytes % 7.2 Eosinophils % 3.1 Basophils % 0.9 Absolute Neutrophils 5.1 Absolute Lymphocytes 1.3 Absolute Monocytes 0.5 Absolute Eosinophils 0.2 Absolute Basophils 0.1 Sodium 140.5 Potassium 3.3 L Chloride 112 H Carbon Dioxide 20 L Anion Gap 9 BUN 9 Creatinine 0.68 Est GFR ( Amer) > 60 Est GFR (Non-Af Amer) > 60 Glucose 89 Calcium 6.7 L* Albumin 1.9 L 05/24/18 15:54 WBC 6.4 RBC 3.57 L Hgb 9.4 L Hct 28.2 L MCV 79 L MCH 26.5 L MCHC 33.5 RDW 15.0 H Plt Count 266 Seg Neutrophils % Lymphocytes % Monocytes % Eosinophils % Basophils % Absolute Neutrophils Absolute Lymphocytes Absolute Monocytes Absolute Eosinophils Absolute Basophils Sodium Potassium Chloride Carbon Dioxide Anion Gap BUN Creatinine Est GFR ( Amer) Est GFR (Non-Af Amer) Glucose Calcium Albumin Impressions: Abdomen/Pelvis CT 05/21/18 00:00 IMPRESSION: 1. Pneumoperitoneum, worrisome for bowel perforation. Surgical consultation recommended. 2. Large loculated ventral hernia at the left lower abdominal wall with no CT evidence for bowel obstruction at this time. 3. Severe right-sided hydronephrosis with cortical thinning at the right kidney and obstructing calculus at the right UPJ. Right nephrolithiasis. 4. Hepatomegaly. Fatty infiltration of the liver. 5. Trace ascites. Chest X-Ray 05/23/18 23:34 IMPRESSION: Satisfactory position of the endotracheal tube. Retrocardiac airspace opacity 2010 [employer]- All Rights Reserved Assessment & Plan - Diagnosis (1) Perforated ascending colon, peritonitis Is this a current diagnosis for this admission?: Yes Plan: Continue Zosyn. Further definitive management by her primary surgeon. (2) Rt Nephrolithiasis and hydronephrosis Is this a current diagnosis for this admission?: Yes Plan: Definitive management per urologist. (3) Complicated UTI (urinary tract infection) Is this a current diagnosis for this admission?: Yes Plan: Zosyn will take care of it. (4) Hypocalcemia Is this a current diagnosis for this admission?: Yes Plan: Repleted (5) Hypokalemia Is this a current diagnosis for this admission?: Yes Plan: Mild. Check BMP in a.m. and and SNTMNT K rider. - Time Time Spent with patient: 25-34 minutes
[2018-05-24] MEDS: MORPHINE SULFATE 10 MG/ML INJ IV PRN ×2 (18:24→22:06)
[2018-05-25] MEDS: PIPERACILLIN SODIUM/TAZOBACTAM 4.5 GM in NORMAL SALINE 100 ML IV SCH ×4 (06:37→23:32)
[2018-05-25 08:48] LABS: ANION GAP 11 (5-19); BLOOD UREA NITROGEN 6 mg/dL (7-20); CALCIUM 7.5 mg/dL (8.4-10.2); CARBON DIOXIDE 17 mmol/L (22-30); CHLORIDE 114 mmol/L (98-107); GLUCOSE 72 mg/dL (75-110); POTASSIUM 3.7 mmol/L (3.6-5.0); SODIUM 141.9 mmol/L (137-145)
[2018-05-25] MEDS: NORMAL SALINE 1000 ML 1,000 ML IV SCH (09:06)
[2018-05-25] MEDS: ENOXAPARIN SODIUM INJ 40 MG/0.4 ML DISP.SYRIN SUBCUT SCH (09:07)
[2018-05-25] MEDS: MORPHINE SULFATE 10 MG/ML INJ IV PRN ×3 (12:41→23:32)
[2018-05-25] MEDS: POTASSIUM CHLORIDE 20 MEQ/50 ML RTU IV SCH (13:05)
--- NOTE | 2018-05-25 13:32 | PDOC PROGRESS REPORT ---
Subjective Progress Note for:: 05/25/18 Subjective:: I seen patient resting in bed comfortably. She is awake alert and talking. She is status post extubation and she tolerates extubation. She complains of abdominal pain. Her CT scan shows severe right hydronephrosis due to large stone at right UPJ and I discussed this with , urologist who states that patient should come out of the acute situation before he proceeds to procedure. Reason For Visit: PERFORATED ASCENDING COLON DUE TO DIVERTICULITIS Physical Exam Vital Signs: Temp Pulse Resp BP Pulse Ox 99.1 F 83 21 H 108/67 98 05/25/18 12:00 05/25/18 12:00 05/25/18 12:00 05/25/18 12:00 05/25/18 12:00 Intake & Output 05/24/18 05/25/18 05/26/18 06:59 06:59 06:59 Intake Total 4559 5254 100 Output Total 1200 2275 1165 Balance 3359 2979 -1065 Weight 107.8 kg 110.2 kg Results Laboratory Results: 05/24/18 15:54 05/25/18 08:00 05/24/18 05/25/18 15:54 08:00 WBC 6.4 RBC 3.57 L Hgb 9.4 L Hct 28.2 L MCV 79 L MCH 26.5 L MCHC 33.5 RDW 15.0 H Plt Count 266 Sodium 141.9 Potassium 3.7 Chloride 114 H Carbon Dioxide 17 L Anion Gap 11 BUN 6 L Creatinine 0.62 Est GFR ( Amer) > 60 Est GFR (Non-Af Amer) > 60 Glucose 72 L Calcium 7.5 L Impressions: Abdomen/Pelvis CT 05/21/18 00:00 IMPRESSION: 1. Pneumoperitoneum, worrisome for bowel perforation. Surgical consultation recommended. 2. Large loculated ventral hernia at the left lower abdominal wall with no CT evidence for bowel obstruction at this time. 3. Severe right-sided hydronephrosis with cortical thinning at the right kidney and obstructing calculus at the right UPJ. Right nephrolithiasis. 4. Hepatomegaly. Fatty infiltration of the liver. 5. Trace ascites. Chest X-Ray 05/23/18 23:34 IMPRESSION: Satisfactory position of the endotracheal tube. Retrocardiac airspace opacity 2010 [employer]- All Rights Reserved Assessment & Plan - Diagnosis (1) Hypokalemia Is this a current diagnosis for this admission?: Yes Plan: Corrected (2) Hypocalcemia Is this a current diagnosis for this admission?: Yes Plan: Repleted (3) Perforated ascending colon, peritonitis Is this a current diagnosis for this admission?: Yes Plan: Continue current management (4) Rt Nephrolithiasis and hydronephrosis Is this a current diagnosis for this admission?: Yes Plan: No urologic intervention during this admission per Dr. Brando vizcarra urologist (5) Complicated UTI (urinary tract infection) Is this a current diagnosis for this admission?: Yes Plan: Bonny will take care of it.
--- NOTE | 2018-05-25 14:03 | PDOC PROGRESS REPORT ---
Subjective Progress Note for:: 05/25/18 Subjective:: Generalized weakness. Some right-sided abdominal pain. Fair control. Had chest discomfort earlier today. No shortness of breath Reason For Visit: PERFORATED ASCENDING COLON DUE TO DIVERTICULITIS Physical Exam Vital Signs: Temp Pulse Resp BP Pulse Ox 99.1 F 83 21 H 108/67 98 05/25/18 12:00 05/25/18 12:00 05/25/18 12:00 05/25/18 12:00 05/25/18 12:00 Intake & Output 05/24/18 05/25/18 05/26/18 06:59 06:59 06:59 Intake Total 4559 5254 100 Output Total 1200 2275 1165 Balance 3359 2979 -1065 Weight 107.8 kg 110.2 kg General appearance: PRESENT: no acute distress, cooperative Respiratory exam: PRESENT: clear to auscultation chery Cardiovascular exam: PRESENT: RRR GI/Abdominal exam: PRESENT: other - Soft, mild diffuse abdominal tenderness without peritoneal signs. Wound VAC in place. Drain output is serosanguineous. Results Laboratory Results: 05/24/18 15:54 05/25/18 08:00 05/24/18 05/25/18 15:54 08:00 WBC 6.4 RBC 3.57 L Hgb 9.4 L Hct 28.2 L MCV 79 L MCH 26.5 L MCHC 33.5 RDW 15.0 H Plt Count 266 Sodium 141.9 Potassium 3.7 Chloride 114 H Carbon Dioxide 17 L Anion Gap 11 BUN 6 L Creatinine 0.62 Est GFR ( Amer) > 60 Est GFR (Non-Af Amer) > 60 Glucose 72 L Calcium 7.5 L Impressions: Abdomen/Pelvis CT 05/21/18 00:00 IMPRESSION: 1. Pneumoperitoneum, worrisome for bowel perforation. Surgical consultation recommended. 2. Large loculated ventral hernia at the left lower abdominal wall with no CT evidence for bowel obstruction at this time. 3. Severe right-sided hydronephrosis with cortical thinning at the right kidney and obstructing calculus at the right UPJ. Right nephrolithiasis. 4. Hepatomegaly. Fatty infiltration of the liver. 5. Trace ascites. Chest X-Ray 05/23/18 23:34 IMPRESSION: Satisfactory position of the endotracheal tube. Retrocardiac airspace opacity 2010 [employer]- All Rights Reserved Assessment & Plan - Diagnosis (1) Perforated ascending colon, peritonitis Is this a current diagnosis for this admission?: Yes Plan: Status post right hemicolectomy. Extubated yesterday. Generalized weakness. Postoperative pain. Patient does not appear septic. Will defer to hospitalist for workup of her chest discomfort. EKG demonstrates nonspecific changes. We will keep in the unit for today. Patient is on Lovenox. Will need to start ambulating the patient as soon as she is able.
--- NOTE | 2018-05-26 00:16 | EKG REPORT ---
SEVERITY:- ABNORMAL ECG - SINUS RHYTHM NONSPECIFIC T ABNORMALITIES, INFERIOR LEADS : Confirmed by: Regine York MD 26-May-2018 00:15:22
[2018-05-26] MEDS: NORMAL SALINE 1000 ML 1,000 ML IV SCH ×2 (00:28→11:39)
[2018-05-26] MEDS: MORPHINE SULFATE 10 MG/ML INJ IV PRN ×3 (05:27→21:09)
[2018-05-26] MEDS: PIPERACILLIN SODIUM/TAZOBACTAM 4.5 GM in NORMAL SALINE 100 ML IV SCH ×4 (05:28→23:04)
[2018-05-26] MEDS: ENOXAPARIN SODIUM INJ 40 MG/0.4 ML DISP.SYRIN SUBCUT SCH (09:06)
[2018-05-26] MEDS ORDERED: LIDOCAINE 1% INJ-PF (10 MG/ML) 30 ML SDV ONE ×2 (09:49→20:11)
[2018-05-26 10:43] LABS: ABSOLUTE BASOPHILS # (AUTO) 0.1 10^3/uL (0.0-0.2); ABSOLUTE EOSINOPHILS # (AUTO) 0.3 10^3/uL (0.0-0.6); ABSOLUTE LYMPHOCYTES (AUTO) 0.9 10^3/uL (0.5-4.7); ABSOLUTE MONOCYTES (AUTO) 0.8 10^3/uL (0.1-1.4); ABSOLUTE NEUT (AUTO) 5.4 10^3/uL (1.7-8.2); BASOPHILS % (AUTO) 0.7 % (0-2); EOSINOPHILS % (AUTO) 3.7 % (0-6); HEMATOCRIT 27.5 % (36.0-47.0); HEMOGLOBIN 9.3 g/dL (12.0-15.5); LYMPHOCYTES % (AUTO) 12.5 % (13-45); MEAN CORPUSCULAR HEMOGLOBIN 26.9 pg (27.0-33.4); MEAN CORPUSCULAR HGB CONC 33.7 g/dL (32.0-36.0); MEAN CORPUSCULAR VOLUME 80 fl (80-97); MONOCYTES % (AUTO) 10.6 % (3-13); PLATELET COUNT 352 10^3/uL (150-450); RED BLOOD COUNT 3.45 10^6/uL (3.72-5.28); RED CELL DISTRIBUTION WIDTH 14.9 % (11.5-14.0); SEGMENTED NEUTROPHILS % (AUTO) 72.5 % (42-78); TOTAL CELLS COUNTED % (AUTO) 100 %; WHITE BLOOD COUNT 7.5 10^3/uL (4.0-10.5)
[2018-05-26 11:06] LABS: ALANINE AMINOTRANSFERASE 30 U/L (9-52); ALBUMIN 2.4 g/dL (3.5-5.0); ALKALINE PHOSPHATASE 112 U/L (38-126); ANION GAP 12 (5-19); ASPARTATE AMINO TRANSFERASE 18 U/L (14-36); BILIRUBIN,DIRECT 1.1 mg/dL (0.0-0.4); BILIRUBIN,TOTAL 1.4 mg/dL (0.2-1.3); BLOOD UREA NITROGEN 6 mg/dL (7-20); CALCIUM 7.9 mg/dL (8.4-10.2); CARBON DIOXIDE 19 mmol/L (22-30); CHLORIDE 110 mmol/L (98-107); GLUCOSE 81 mg/dL (75-110); SODIUM 140.8 mmol/L (137-145)
--- NOTE | 2018-05-26 15:26 | PDOC PROGRESS REPORT ---
Subjective Progress Note for:: 05/26/18 Subjective:: Patient is resting in bed. She is awake alert oriented. Still she complains of some abdominal pain at the operation sites. Otherwise she is not in any form of cardiorespiratory distress. Her blood work both hematology and chemistry are within normal limits. Reason For Visit: PERFORATED ASCENDING COLON DUE TO DIVERTICULITIS Physical Exam Vital Signs: Temp Pulse Resp BP Pulse Ox 99.5 F 81 19 124/76 100 05/26/18 14:00 05/26/18 14:00 05/26/18 14:00 05/26/18 14:00 05/26/18 14:00 Intake & Output 05/25/18 05/26/18 05/27/18 06:59 06:59 06:59 Intake Total 5254 5122 1000 Output Total 2275 3915 2050 Balance 2979 1207 -1050 Weight 110.2 kg 109.3 kg General appearance: PRESENT: no acute distress Head exam: PRESENT: atraumatic Eye exam: PRESENT: conjunctiva pink Neck exam: ABSENT: carotid bruit, JVD, lymphadenopathy, thyromegaly Respiratory exam: PRESENT: clear to auscultation chery. ABSENT: rales, rhonchi, wheezes Cardiovascular exam: PRESENT: RRR. ABSENT: diastolic murmur, rubs, systolic murmur GI/Abdominal exam: PRESENT: normal bowel sounds Neurological exam: PRESENT: alert, awake, oriented to time, oriented to situation Psychiatric exam: PRESENT: normal mood Results Laboratory Results: 05/26/18 10:24 05/26/18 10:24 05/26/18 05/26/18 10:24 10:24 WBC 7.5 RBC 3.45 L Hgb 9.3 L Hct 27.5 L MCV 80 MCH 26.9 L MCHC 33.7 RDW 14.9 H Plt Count 352 Seg Neutrophils % 72.5 Lymphocytes % 12.5 L Monocytes % 10.6 Eosinophils % 3.7 Basophils % 0.7 Absolute Neutrophils 5.4 Absolute Lymphocytes 0.9 Absolute Monocytes 0.8 Absolute Eosinophils 0.3 Absolute Basophils 0.1 Sodium 140.8 Potassium 4.0 Chloride 110 H Carbon Dioxide 19 L Anion Gap 12 BUN 6 L Creatinine 0.58 Est GFR ( Amer) > 60 Est GFR (Non-Af Amer) > 60 Glucose 81 Calcium 7.9 L Total Bilirubin 1.4 H AST 18 ALT 30 Alkaline Phosphatase 112 Total Protein 5.0 L Albumin 2.4 L Impressions: Abdomen/Pelvis CT 05/21/18 00:00 IMPRESSION: 1. Pneumoperitoneum, worrisome for bowel perforation. Surgical consultation recommended. 2. Large loculated ventral hernia at the left lower abdominal wall with no CT evidence for bowel obstruction at this time. 3. Severe right-sided hydronephrosis with cortical thinning at the right kidney and obstructing calculus at the right UPJ. Right nephrolithiasis. 4. Hepatomegaly. Fatty infiltration of the liver. 5. Trace ascites. Chest X-Ray 05/23/18 23:34 IMPRESSION: Satisfactory position of the endotracheal tube. Retrocardiac airspace opacity 2010 [employer]- All Rights Reserved Assessment & Plan - Diagnosis (1) Hypokalemia Is this a current diagnosis for this admission?: Yes Plan: Corrected (2) Hypocalcemia Is this a current diagnosis for this admission?: Yes Plan: Repleted (3) Perforated ascending colon, peritonitis Is this a current diagnosis for this admission?: Yes Plan: Continue current management (4) Rt Nephrolithiasis and hydronephrosis Is this a current diagnosis for this admission?: Yes Plan: No urologic intervention during this admission per Dr. Brando vizcarra urologist (5) Complicated UTI (urinary tract infection) Is this a current diagnosis for this admission?: Yes Plan: Bonny will take care of it.
--- NOTE | 2018-05-27 01:33 | Operative Report ---
Nonrecallable Operative Report DATE OF SURGERY: 05/26/18 PREOPERATIVE DIAGNOSIS: 1. Perforated right colon. 2. Large abdominal wound POSTOPERATIVE DIAGNOSIS: Same as above OPERATION: Delayed primary closure of large midline abdominal wound (35 cm). SURGEON: LUZ CRUM ANESTHESIA: Local TISSUE REMOVED OR ALTERED: None COMPLICATIONS: None apparent ESTIMATED BLOOD LOSS: Minimal PROCEDURE: Drains/implants: Wound VAC placed over the incision, on top of Adaptic dressings. Procedure in detail: After informed consent was obtained from the patient, she was laid in the supine position in the intensive care unit. The area of the wound VAC was inspected. The wound VAC was removed. The abdominal wound was prepped and draped in a normal sterile fashion. 1% lidocaine was used to anesthetize the skin of the large abdominal wound. 3-0 nylon suture was used to close the large abdominal wound in simple interrupted fashion. Once this was completed, Adaptic dressing was placed over top of the wound and a wound VAC sponge was laid on the Adaptic dressing. The wound VAC was attached and good suction was noted. At this time the procedure was concluded. All sponge, instrument, and needle counts were correct 2. Condition: Fair.
--- NOTE | 2018-05-27 01:35 | PDOC PROGRESS REPORT ---
Subjective Reason For Visit: PERFORATED ASCENDING COLON DUE TO DIVERTICULITIS Physical Exam Vital Signs: Temp Pulse Resp BP Pulse Ox 99.7 F 89 17 144/89 H 100 05/26/18 22:00 05/26/18 19:32 05/26/18 22:00 05/26/18 20:26 05/26/18 22:00 Intake & Output 05/25/18 05/26/18 05/27/18 06:59 06:59 06:59 Intake Total 5251 5122 2438 Output Total 6604 5565 2980 Balance 2979 1207 -542 Weight 110.2 kg 109.3 kg Results Laboratory Results: 05/26/18 10:24 05/26/18 10:24 05/26/18 05/26/18 10:24 10:24 WBC 7.5 RBC 3.45 L Hgb 9.3 L Hct 27.5 L MCV 80 MCH 26.9 L MCHC 33.7 RDW 14.9 H Plt Count 352 Seg Neutrophils % 72.5 Lymphocytes % 12.5 L Monocytes % 10.6 Eosinophils % 3.7 Basophils % 0.7 Absolute Neutrophils 5.4 Absolute Lymphocytes 0.9 Absolute Monocytes 0.8 Absolute Eosinophils 0.3 Absolute Basophils 0.1 Sodium 140.8 Potassium 4.0 Chloride 110 H Carbon Dioxide 19 L Anion Gap 12 BUN 6 L Creatinine 0.58 Est GFR ( Amer) > 60 Est GFR (Non-Af Amer) > 60 Glucose 81 Calcium 7.9 L Total Bilirubin 1.4 H AST 18 ALT 30 Alkaline Phosphatase 112 Total Protein 5.0 L Albumin 2.4 L Impressions: Abdomen/Pelvis CT 05/21/18 00:00 IMPRESSION: 1. Pneumoperitoneum, worrisome for bowel perforation. Surgical consultation recommended. 2. Large loculated ventral hernia at the left lower abdominal wall with no CT evidence for bowel obstruction at this time. 3. Severe right-sided hydronephrosis with cortical thinning at the right kidney and obstructing calculus at the right UPJ. Right nephrolithiasis. 4. Hepatomegaly. Fatty infiltration of the liver. 5. Trace ascites. Chest X-Ray 05/23/18 23:34 IMPRESSION: Satisfactory position of the endotracheal tube. Retrocardiac airspace opacity 2010 [employer]- All Rights Reserved Assessment & Plan - Diagnosis (1) Perforated ascending colon, peritonitis Is this a current diagnosis for this admission?: Yes - Plan Summary Plan Summary: This is a 43-year-old female with a perforated right colon. She underwent exploratory laparotomy and right hemicolectomy. The patient is unsure if she has passed flatus yet. She is getting out of bed with physical therapy. Her vital signs are stable. She is breathing well without the ventilator. I believe she is stable enough for transfer to the [facility]. I will order this today. I will await bowel function prior to removal of the NG tube. She is postop day 5 from surgery. I will remove her wound VAC today and perform delayed primary closure of her midline incision.
[2018-05-27] MEDS: NORMAL SALINE 1000 ML 1,000 ML IV SCH ×4 (01:55→22:31)
[2018-05-27] MEDS: MORPHINE SULFATE 10 MG/ML INJ IV PRN ×2 (02:40→09:28)
[2018-05-27] MEDS: PIPERACILLIN SODIUM/TAZOBACTAM 4.5 GM in NORMAL SALINE 100 ML IV SCH ×4 (05:16→23:58)
--- NOTE | 2018-05-27 08:46 | RADIOLOGY REPORT (SQ) ---
EXAM DESCRIPTION: KUB/ABDOMEN (SINGLE VIEW) COMPLETED DATE/TIME: 05/27/2018 8:28 am REASON FOR STUDY: distentention s/p colon resection COMPARISON: CT dated 05/21/2018. NUMBER OF VIEWS: One view. TECHNIQUE: Supine radiographic image of the abdomen acquired. LIMITATIONS: None. FINDINGS: BOWEL GAS PATTERN: Normal bowel gas pattern. No dilated loops. CALCIFICATIONS: Right renal calculus. SOFT TISSUES: No gross mass or suggestion of organomegaly. HARDWARE: Nasogastric tube with the tip in the stomach. Drainage tube in the mid abdomen. BONES: No acute fracture. No worrisome bone lesions. OTHER: No other significant finding. IMPRESSION: POSTOPERATIVE HARDWARE DESCRIBED. RIGHT RENAL CALCULI. NO RADIOGRAPHIC EVIDENCE FOR ACUTE ABDOMINAL DISEASE. TECHNICAL DOCUMENTATION: JOB ID: [id number] [employer]- All Rights Reserved Reading location - IP/workstation name: [email or web address]
[2018-05-27] MEDS: ENOXAPARIN SODIUM INJ 40 MG/0.4 ML DISP.SYRIN SUBCUT SCH (09:29)
--- NOTE | 2018-05-27 12:27 | PDOC PROGRESS REPORT ---
Subjective Progress Note for:: 05/27/18 Subjective:: Feels better. But generalized weakness. Reason For Visit: PERFORATED ASCENDING COLON DUE TO DIVERTICULITIS Physical Exam Vital Signs: Temp Pulse Resp BP Pulse Ox 98.0 F 90 16 114/63 100 05/27/18 03:11 05/27/18 07:00 05/27/18 01:46 05/27/18 03:11 05/27/18 03:11 Intake & Output 05/26/18 05/27/18 05/28/18 06:59 06:59 06:59 Intake Total 5122 4349 1000 Output Total 3915 4080 Balance 7710 755 9824 Weight 109.3 kg 111.8 kg General appearance: PRESENT: no acute distress, cooperative Respiratory exam: PRESENT: clear to auscultation chery Cardiovascular exam: PRESENT: RRR GI/Abdominal exam: PRESENT: other - Soft, obese, mild diffuse abdominal tenderness without peritoneal signs. Wound VAC in place. Results Laboratory Results: 05/26/18 10:24 05/26/18 10:24 Impressions: Abdomen/Pelvis CT 05/21/18 00:00 IMPRESSION: 1. Pneumoperitoneum, worrisome for bowel perforation. Surgical consultation recommended. 2. Large loculated ventral hernia at the left lower abdominal wall with no CT evidence for bowel obstruction at this time. 3. Severe right-sided hydronephrosis with cortical thinning at the right kidney and obstructing calculus at the right UPJ. Right nephrolithiasis. 4. Hepatomegaly. Fatty infiltration of the liver. 5. Trace ascites. Chest X-Ray 05/23/18 23:34 IMPRESSION: Satisfactory position of the endotracheal tube. Retrocardiac airspace opacity 2010 [employer]- All Rights Reserved KUB X-Ray 05/27/18 06:00 IMPRESSION: POSTOPERATIVE HARDWARE DESCRIBED. RIGHT RENAL CALCULI. NO RADIOGRAPHIC EVIDENCE FOR ACUTE ABDOMINAL DISEASE. Assessment & Plan - Diagnosis (1) Perforated ascending colon, peritonitis Is this a current diagnosis for this admission?: Yes Plan: Status post right hemicolectomy. Looks better today. Await bowel function. When patient able to get up out of bed will DC her Estevez catheter. Keep NG tube in for right now. The output is still bile tinged. Will ask a physical therapy to help work with the patient for ambulation.
--- NOTE | 2018-05-27 15:20 | PDOC PROGRESS REPORT ---
Subjective Progress Note for:: 05/27/18 Subjective:: Elier has been showing steady progress. She is awake alert oriented. Her abdominal pain is improving. She told me also she is actively participated with physical therapy. Still she has NG tube and Estevez catheter. Wound VAC discontinued. Reason For Visit: PERFORATED ASCENDING COLON DUE TO DIVERTICULITIS Physical Exam Vital Signs: Temp Pulse Resp BP Pulse Ox 98.0 F 77 19 139/75 H 96 05/27/18 11:19 05/27/18 14:00 05/27/18 11:19 05/27/18 11:19 05/27/18 11:19 Intake & Output 05/26/18 05/27/18 05/28/18 06:59 06:59 06:59 Intake Total 5122 4449 1100 Output Total 3915 4080 Balance 1209 783 0625 Weight 109.3 kg 111.8 kg Results Laboratory Results: 05/26/18 10:24 05/26/18 10:24 Impressions: Abdomen/Pelvis CT 05/21/18 00:00 IMPRESSION: 1. Pneumoperitoneum, worrisome for bowel perforation. Surgical consultation recommended. 2. Large loculated ventral hernia at the left lower abdominal wall with no CT evidence for bowel obstruction at this time. 3. Severe right-sided hydronephrosis with cortical thinning at the right kidney and obstructing calculus at the right UPJ. Right nephrolithiasis. 4. Hepatomegaly. Fatty infiltration of the liver. 5. Trace ascites. Chest X-Ray 05/23/18 23:34 IMPRESSION: Satisfactory position of the endotracheal tube. Retrocardiac airspace opacity 2010 [employer]- All Rights Reserved KUB X-Ray 05/27/18 06:00 IMPRESSION: POSTOPERATIVE HARDWARE DESCRIBED. RIGHT RENAL CALCULI. NO RADIOGRAPHIC EVIDENCE FOR ACUTE ABDOMINAL DISEASE. Assessment & Plan - Diagnosis (1) Hypokalemia Is this a current diagnosis for this admission?: Yes Plan: Corrected (2) Hypocalcemia Is this a current diagnosis for this admission?: Yes Plan: Repleted (3) Perforated ascending colon, peritonitis Is this a current diagnosis for this admission?: Yes Plan: Status post right hemicolectomy. Continue Zosyn for peritonitis (4) Rt Nephrolithiasis and hydronephrosis Is this a current diagnosis for this admission?: Yes Plan: No urologic intervention during this admission per Dr. Brando vizcarra urologist (5) Complicated UTI (urinary tract infection) Is this a current diagnosis for this admission?: Yes Plan: Bonny will take care of it.
[2018-05-28] MEDS: PIPERACILLIN SODIUM/TAZOBACTAM 4.5 GM in NORMAL SALINE 100 ML IV SCH (05:11)
[2018-05-28] MEDS: NORMAL SALINE 1000 ML 1,000 ML IV SCH (05:12)
[2018-05-28] MEDS: ENOXAPARIN SODIUM INJ 40 MG/0.4 ML DISP.SYRIN SUBCUT SCH (09:51)
--- NOTE | 2018-05-28 11:40 | PDOC PROGRESS REPORT ---
Subjective Progress Note for:: 05/28/18 Reason For Visit: PERFORATED ASCENDING COLON DUE TO DIVERTICULITIS Patient is postop day 6, Estevez catheter and NG tube still in. Slowly getting about. Wound VAC in place. Physical Exam Vital Signs: Temp Pulse Resp BP Pulse Ox 97.6 F 86 18 141/84 H 99 05/28/18 07:57 05/28/18 07:57 05/28/18 07:57 05/28/18 07:57 05/28/18 07:57 Intake & Output 05/27/18 05/28/18 05/29/18 06:59 06:59 06:59 Intake Total 4449 4225 Output Total 4080 425 Balance 369 3800 Weight 111.8 kg 114.3 kg General appearance: PRESENT: no acute distress GI/Abdominal exam: PRESENT: other - Minimal drainage out of NG tube; wound vacs in position Results Laboratory Results: 05/26/18 10:24 05/26/18 10:24 Impressions: Abdomen/Pelvis CT 05/21/18 00:00 IMPRESSION: 1. Pneumoperitoneum, worrisome for bowel perforation. Surgical consultation recommended. 2. Large loculated ventral hernia at the left lower abdominal wall with no CT evidence for bowel obstruction at this time. 3. Severe right-sided hydronephrosis with cortical thinning at the right kidney and obstructing calculus at the right UPJ. Right nephrolithiasis. 4. Hepatomegaly. Fatty infiltration of the liver. 5. Trace ascites. Chest X-Ray 05/23/18 23:34 IMPRESSION: Satisfactory position of the endotracheal tube. Retrocardiac airspace opacity 2010 [employer]- All Rights Reserved KUB X-Ray 05/27/18 06:00 IMPRESSION: POSTOPERATIVE HARDWARE DESCRIBED. RIGHT RENAL CALCULI. NO RADIOGRAPHIC EVIDENCE FOR ACUTE ABDOMINAL DISEASE. Assessment & Plan - Diagnosis (1) Perforated ascending colon, peritonitis Is this a current diagnosis for this admission?: Yes Plan: Patient is postoperative day 6 status post exploratory laparotomy, right colectomy ilio transverse colostomy for complicated perforated abscess secondary to diverticular disease. Making slow progress. Recommendations: 1. Clamp NG tube; discontinue if tolerated 2. Out of bed to chair. Dissipate discharge Estevez catheter later today 3. Change wound VAC; this was reviewed with nursing staff 4. Consider discontinuing antibiotics after today.
--- NOTE | 2018-05-28 15:38 | PDOC PROGRESS REPORT ---
Subjective Progress Note for:: 05/28/18 Subjective:: No new complaints. Patient able to move her bowels. She is modestly participating with physical therapy. Today's her postop #6. Reason For Visit: PERFORATED ASCENDING COLON DUE TO DIVERTICULITIS Physical Exam Vital Signs: Temp Pulse Resp BP Pulse Ox 97.6 F 86 18 141/84 H 99 05/28/18 07:57 05/28/18 07:57 05/28/18 07:57 05/28/18 07:57 05/28/18 07:57 Intake & Output 05/27/18 05/28/18 05/29/18 06:59 06:59 06:59 Intake Total 4449 4225 Output Total 4080 425 Balance 369 3800 Weight 111.8 kg 114.3 kg General appearance: PRESENT: no acute distress Head exam: PRESENT: atraumatic Eye exam: PRESENT: conjunctiva pink Mouth exam: PRESENT: moist Neck exam: ABSENT: carotid bruit, JVD, lymphadenopathy, thyromegaly Respiratory exam: PRESENT: clear to auscultation chery. ABSENT: rales, rhonchi, wheezes Cardiovascular exam: PRESENT: RRR. ABSENT: diastolic murmur, rubs, systolic murmur GI/Abdominal exam: PRESENT: hypoactive bowel sounds Results Laboratory Results: 05/26/18 10:24 05/26/18 10:24 Impressions: Abdomen/Pelvis CT 05/21/18 00:00 IMPRESSION: 1. Pneumoperitoneum, worrisome for bowel perforation. Surgical consultation recommended. 2. Large loculated ventral hernia at the left lower abdominal wall with no CT evidence for bowel obstruction at this time. 3. Severe right-sided hydronephrosis with cortical thinning at the right kidney and obstructing calculus at the right UPJ. Right nephrolithiasis. 4. Hepatomegaly. Fatty infiltration of the liver. 5. Trace ascites. Chest X-Ray 05/23/18 23:34 IMPRESSION: Satisfactory position of the endotracheal tube. Retrocardiac airspace opacity 2010 [employer]- All Rights Reserved KUB X-Ray 05/27/18 06:00 IMPRESSION: POSTOPERATIVE HARDWARE DESCRIBED. RIGHT RENAL CALCULI. NO RADIOGRAPHIC EVIDENCE FOR ACUTE ABDOMINAL DISEASE. Assessment & Plan - Diagnosis (1) Hypokalemia Is this a current diagnosis for this admission?: Yes Plan: Corrected (2) Hypocalcemia Is this a current diagnosis for this admission?: Yes Plan: Repleted (3) Perforated ascending colon, peritonitis Is this a current diagnosis for this admission?: Yes Plan: Status post right hemicolectomy. Continue Zosyn for peritonitis (4) Rt Nephrolithiasis and hydronephrosis Is this a current diagnosis for this admission?: Yes Plan: No urologic intervention during this admission per Dr. Brando vizcarra urologist (5) Complicated UTI (urinary tract infection) Is this a current diagnosis for this admission?: Yes Plan: Zosyn will take care of it.
[2018-05-29] MEDS ORDERED: PIPERACILLIN/TAZOBACTAM 4.5 GM VIAL IV PRN (00:51)
[2018-05-29] MEDS: MORPHINE SULFATE 10 MG/ML INJ IV PRN (03:51)
[2018-05-29] MEDS: PIPERACILLIN SODIUM/TAZOBACTAM 4.5 GM in NORMAL SALINE 100 ML IV SCH ×2 (05:08→05:10)
[2018-05-29] MEDS ORDERED: PIPERACILLIN SODIUM/TAZOBACTAM 4.5 GM in NORMAL SALINE 100 ML IV SCH (06:00)
--- NOTE | 2018-05-29 11:11 | PDOC PROGRESS REPORT ---
Subjective Progress Note for:: 05/29/18 Subjective:: I seen patient propped up in bed. Her NG tube has been removed and her diet has been advanced to solid diet. Patient's able to eat and tolerates well. I discontinued her Zosyn after 7 days of treatment for possible peritonitis. Reason For Visit: PERFORATED ASCENDING COLON DUE TO DIVERTICULITIS Physical Exam Vital Signs: Temp Pulse Resp BP Pulse Ox 98.2 F 79 18 139/80 H 98 05/29/18 08:45 05/29/18 08:45 05/29/18 08:45 05/29/18 08:45 05/29/18 08:45 Intake & Output 05/28/18 05/29/18 05/30/18 06:59 06:59 06:59 Intake Total 4325 243 Output Total 425 875 Balance 3900 -632 Weight 114.3 kg 108.7 kg General appearance: PRESENT: no acute distress Head exam: PRESENT: atraumatic Mouth exam: PRESENT: moist Neck exam: ABSENT: carotid bruit, JVD, lymphadenopathy, thyromegaly Respiratory exam: PRESENT: clear to auscultation chery. ABSENT: rales, rhonchi, wheezes Cardiovascular exam: PRESENT: RRR. ABSENT: diastolic murmur, rubs, systolic murmur GI/Abdominal exam: PRESENT: normal bowel sounds Neurological exam: PRESENT: alert, awake, oriented to time, oriented to situation Psychiatric exam: PRESENT: normal mood Results Laboratory Results: 05/26/18 10:24 05/26/18 10:24 Impressions: Abdomen/Pelvis CT 05/21/18 00:00 IMPRESSION: 1. Pneumoperitoneum, worrisome for bowel perforation. Surgical consultation recommended. 2. Large loculated ventral hernia at the left lower abdominal wall with no CT evidence for bowel obstruction at this time. 3. Severe right-sided hydronephrosis with cortical thinning at the right kidney and obstructing calculus at the right UPJ. Right nephrolithiasis. 4. Hepatomegaly. Fatty infiltration of the liver. 5. Trace ascites. Chest X-Ray 05/23/18 23:34 IMPRESSION: Satisfactory position of the endotracheal tube. Retrocardiac airspace opacity 2010 [employer]- All Rights Reserved KUB X-Ray 05/27/18 06:00 IMPRESSION: POSTOPERATIVE HARDWARE DESCRIBED. RIGHT RENAL CALCULI. NO RADIOGRAPHIC EVIDENCE FOR ACUTE ABDOMINAL DISEASE. Assessment & Plan - Diagnosis (1) Hypokalemia Is this a current diagnosis for this admission?: Yes Plan: Corrected (2) Hypocalcemia Is this a current diagnosis for this admission?: Yes Plan: Repleted (3) Perforated ascending colon, peritonitis Is this a current diagnosis for this admission?: Yes Plan: Status post right hemicolectomy. Continue Zosyn for peritonitis (4) Rt Nephrolithiasis and hydronephrosis Is this a current diagnosis for this admission?: Yes Plan: No urologic intervention during this admission per Dr. Brando vizcarra urologist (5) Complicated UTI (urinary tract infection) Is this a current diagnosis for this admission?: Yes Plan: Treated
[2018-05-29] MEDS: ENOXAPARIN SODIUM INJ 40 MG/0.4 ML DISP.SYRIN SUBCUT SCH (11:46)
[2018-05-29] MEDS: NORMAL SALINE 1000 ML 1,000 ML IV SCH (14:23)
--- NOTE | 2018-05-29 17:26 | PDOC PROGRESS REPORT ---
Subjective Reason For Visit: PERFORATED ASCENDING COLON DUE TO DIVERTICULITIS Physical Exam Vital Signs: Temp Pulse Resp BP Pulse Ox 98.0 F 80 16 136/75 H 97 05/29/18 15:19 05/29/18 15:19 05/29/18 15:19 05/29/18 15:19 05/29/18 15:19 Intake & Output 05/28/18 05/29/18 05/30/18 06:59 06:59 06:59 Intake Total 4325 1343 Output Total 425 875 Balance 3900 468 Weight 114.3 kg 108.7 kg Results Laboratory Results: 05/26/18 10:24 05/26/18 10:24 Impressions: Abdomen/Pelvis CT 05/21/18 00:00 IMPRESSION: 1. Pneumoperitoneum, worrisome for bowel perforation. Surgical consultation recommended. 2. Large loculated ventral hernia at the left lower abdominal wall with no CT evidence for bowel obstruction at this time. 3. Severe right-sided hydronephrosis with cortical thinning at the right kidney and obstructing calculus at the right UPJ. Right nephrolithiasis. 4. Hepatomegaly. Fatty infiltration of the liver. 5. Trace ascites. Chest X-Ray 05/23/18 23:34 IMPRESSION: Satisfactory position of the endotracheal tube. Retrocardiac airspace opacity 2010 [employer]- All Rights Reserved KUB X-Ray 05/27/18 06:00 IMPRESSION: POSTOPERATIVE HARDWARE DESCRIBED. RIGHT RENAL CALCULI. NO RADIOGRAPHIC EVIDENCE FOR ACUTE ABDOMINAL DISEASE. Assessment & Plan - Diagnosis (1) Perforated ascending colon, peritonitis Is this a current diagnosis for this admission?: Yes - Plan Summary Plan Summary: 43 y/o F s/p laparotomy for a perforated right colon. She is doing well today. She is passing flatus. She is tolerating liquids well. Her incision is healing well. Advance diet. Encourage ambulation Aggressive pulmonary toilet.
[2018-05-29] MEDS ORDERED: HYDROCODONE/ACETAMINOPHEN 5-325 MG TABLET PO PRN (20:36)
[2018-05-30] MEDS: ENOXAPARIN SODIUM INJ 40 MG/0.4 ML DISP.SYRIN SUBCUT SCH (09:15)
--- NOTE | 2018-05-30 11:47 | PDOC DISCHARGE SUMMARY ---
General - Admit/Disc Date/PCP Admission Date/Primary Care Provider: 05/21/18 13:58 NOVA SOTELO MD Discharge Date: 05/30/18 - Discharge Diagnosis (1) Perforated ascending colon, peritonitis Is this a current diagnosis for this admission?: Yes - Additional Information Resuscitation Status: Full Code Discharge Diet: As Tolerated Discharge Activity: No Lifting Over 10 Pounds Home Medications: Unobtainable [Unobtainable] 05/22/18 History of Present Illness History of Present Illness: RHEA HONG is a 43 year old female admitted with sepsis and evidence of perforation of her right colon on CT scan. The patient was immediately taken to the operating room for emergency laparotomy. The patient was found to have perforated diverticulum of the right colon. The patient underwent right hemicolectomy. After surgery she was taken to the intensive care unit in critical condition. Hospital Course Hospital Course: Patient underwent open right hemicolectomy for perforation. She was then taken to the intensive care unit for critical care. The patient was weaned from the ventilator over the next several days. She continued to improve. On approximately postoperative day #5, delayed primary closure of her abdominal incision was performed. She tolerated this well. Subsequently, her bowel function returned and she was begun on a diet. Physical therapy assisted with her ambulation. By 05/30/2018 the patient was ambulating, tolerating a diet, and her pain was controlled with oral pain medications. At this time it was felt that she had reached maximal hospital benefit, and was fit for discharge. Physical Exam Vital Signs: Temp Pulse Resp BP Pulse Ox 99.1 F 76 18 124/79 98 05/30/18 08:22 05/30/18 08:22 05/30/18 08:22 05/30/18 08:22 05/30/18 08:22 Intake & Output 05/29/18 05/30/18 05/31/18 06:59 06:59 06:59 Intake Total 1343 2289 Output Total 875 Balance 468 2289 Weight 108.7 kg 110.4 kg Results Laboratory Results: 05/26/18 10:24 05/26/18 10:24 Impressions: Abdomen/Pelvis CT 05/21/18 00:00 IMPRESSION: 1. Pneumoperitoneum, worrisome for bowel perforation. Surgical consultation recommended. 2. Large loculated ventral hernia at the left lower abdominal wall with no CT evidence for bowel obstruction at this time. 3. Severe right-sided hydronephrosis with cortical thinning at the right kidney and obstructing calculus at the right UPJ. Right nephrolithiasis. 4. Hepatomegaly. Fatty infiltration of the liver. 5. Trace ascites. Chest X-Ray 05/23/18 23:34 IMPRESSION: Satisfactory position of the endotracheal tube. Retrocardiac airspace opacity 2010 [employer]- All Rights Reserved KUB X-Ray 05/27/18 06:00 IMPRESSION: POSTOPERATIVE HARDWARE DESCRIBED. RIGHT RENAL CALCULI. NO RADIOGRAPHIC EVIDENCE FOR ACUTE ABDOMINAL DISEASE. Qualifiers - * PATIENT BEING DISCHARGED WITH ANY OF THE FOLLOWING DIAGNOSIS: No Plan Discharge Plan: Discharge home. Diet: As tolerated. Activity: No lifting greater than 10 pounds for 6 weeks. Follow-up at [facility] in 7-10 days. Addison 5/325 mg p.o. every 6 hours as needed for pain. Okay to shower. Wash incision with soap and water. No tub baths or swimming 2 weeks. Time Spent: Less than 30 Minutes
[2018-05-30 14:03] VITALS: BP 115/65
== END 2018-05-30 15:34 | disposition home or self-care (01) | DRG 854 ==
LOC: ER 08:25 → EH 13:58 → ICU 22:37 → 3S 05-27 01:51
PROVIDERS: ADMIT Surgery; ATTEND Surgery
PROC: 0DNB0ZZ Release Ileum, Open Approach (ICD-10-PCS; 2018-05-21)
PROC: 0DN80ZZ Release Small Intestine, Open Approach (ICD-10-PCS; 2018-05-21)
PROC: 0WQF0ZZ Repair Abdominal Wall, Open Approach (ICD-10-PCS; 2018-05-21)
PROC: 5A1945Z Respiratory Ventilation, 24-96 Consecutive Hours (ICD-10-PCS; 2018-05-21)
PROC: 0TJB8ZZ Inspection of Bladder, Via Natural or Artificial Opening Endoscopic (ICD-10-PCS; 2018-05-21)
PROC: 0DTF0ZZ Resection of Right Large Intestine, Open Approach (ICD-10-PCS; 2018-05-21 14:15)
PROC: 0WQF3ZZ Repair Abdominal Wall, Percutaneous Approach (ICD-10-PCS; principal; 2018-05-26)
DX: A41.9 Sepsis, unspecified organism (principal); K57.20 Diverticulitis of large intestine with perforation and abscess without bleeding; N13.0 Hydronephrosis with ureteropelvic junction obstruction; R18.8 Other ascites; N39.0 Urinary tract infection, site not specified; N13.2 Hydronephrosis with renal and ureteral calculous obstruction; K43.9 Ventral hernia without obstruction or gangrene; N20.0 Calculus of kidney; K76.0 Fatty (change of) liver, not elsewhere classified; K21.9 Gastro-esophageal reflux disease without esophagitis; K44.9 Diaphragmatic hernia without obstruction or gangrene; F32.9 Major depressive disorder, single episode, unspecified; M46.90 Unspecified inflammatory spondylopathy, site unspecified; Z78.1 Physical restraint status; E83.51 Hypocalcemia; E87.6 Hypokalemia
CPT/HCPCS: 00790; 36415; 71045; 74018; 74177; 80048; 80053; 81001; 82040; 82330; 82803; 82962; 83605; 83690; 84478; 85025; 85027; 87040; 88302; 88305; 88307; 93005; 93010; 94002; 94003; 96361; 96365; 96375; 99291; C1758; C1769; J0131; J0330; J1170; J1335; J1650; J2250; J2270; J2405; J2543; J2704; J3010; J3480; J3490; J7030; J7060; S0164

== ENCOUNTER 2018-09-03 14:26 | Emergency (ER) | payer OTHER ==
[2018-09-03 14:32] VITALS: BP 135/96
--- NOTE | 2018-09-03 15:39 | ER Document Report ---
ED Medical Screen (RME) - General Chief Complaint: Skin Problem Stated Complaint: SORES Time Seen by Provider: 09/03/18 15:26 Mode of Arrival: Ambulatory Information source: Patient Notes: 43-year-old female presents emergency department with complaints of a rash on her left upper leg and a boil on her buttock. Patient states that the symptoms started a few days ago. Patient states that she has had a history of boils on her buttock previously. She denies any history of MRSA. Patient states that the LAT rash on her leg just started today. She denies any pruritus or pain. TRAVEL OUTSIDE OF THE [place] IN LAST 30 DAYS: No - HPI Onset: Last week Onset/Duration: Sudden Quality of pain: No pain Severity: None Associated Symptoms: None Exacerbated by: Denies Relieved by: Denies Similar symptoms previously: Yes Recently seen / treated by doctor: No - Related Data Allergies/Adverse Reactions: No Known Allergies Allergy (Verified 09/03/18 14:28) Past Medical History - General Information source: Patient - Social History Family history: Reviewed & Not Pertinent - Past Medical History Cardiac Medical History: Denies: Hx Coronary Artery Disease, Hx Heart Attack, Hx Hypertension Pulmonary Medical History: Denies: Hx Asthma, Hx Bronchitis, Hx COPD, Hx Pneumonia, Hx Tuberculosis Neurological Medical History: Denies: Hx Cerebrovascular Accident, Hx Seizures Endocrine Medical History: Denies: Hx Diabetes Mellitus Type 1, Hx Diabetes Mellitus Type 2 Renal/ Medical History: Denies: Hx Peritoneal Dialysis GI Medical History: Reports: Hx Gastroesophageal Reflux Disease, Hx Hiatal Hernia Musculoskeltal Medical History: Reports Hx Arthritis - Back Psychiatric Medical History: Reports: Hx Depression Denies: Hx Schizophrenia Past Surgical History: Reports: Hx Abdominal Surgery - gangrene, Hx Section, Hx Herniorrhaphy, Hx Orthopedic Surgery - Carpel tunnel, Hx Tubal Ligation. Denies: Hx Hysterectomy, Hx Pacemaker - Immunizations Immunizations up to date: Yes Hx Diphtheria, Pertussis, Tetanus Vaccination: Yes Physical Exam - Vital signs Vitals: Temp Pulse Resp BP Pulse Ox 98.9 F 70 16 135/96 H 97 09/03/18 14:31 09/03/18 14:31 09/03/18 14:31 09/03/18 14:31 09/03/18 14:31 Course - Vital Signs Vital signs: Temp Pulse Resp BP Pulse Ox 98.9 F 70 16 135/96 H 97 09/03/18 14:31 09/03/18 14:31 09/03/18 14:31 09/03/18 14:31 09/03/18 14:31 Doctor's Discharge - Discharge Clinical Impression: Abrasion Condition: Good Disposition: HOME, SELF-CARE Instructions: MRSA Cellulitis ([facility]), Cephalexin ([facility]), Trimethoprim-Sulfa ([facility]) Prescriptions: Cephalexin Monohydrate [Keflex 500 mg Capsule] 500 mg PO BID 5 Days #14 capsule Sulfamethoxazole/Trimethoprim [Bactrim Ds Tablet] 1 each PO BID #14 tablet Referrals: LUZ CRUM MD [Primary Care Provider] - Follow up as needed
--- NOTE | 2018-09-03 15:43 | ER Document Report ---
ED General - General Chief Complaint: Skin Problem Stated Complaint: SORES Time Seen by Provider: 09/03/18 15:26 Mode of Arrival: Ambulatory Information source: Patient TRAVEL OUTSIDE OF THE [place] IN LAST 30 DAYS: No - HPI Onset: Last week Onset/Duration: Gradual Quality of pain: No pain Associated symptoms: None Exacerbated by: Denies Relieved by: Denies Similar symptoms previously: Yes Recently seen / treated by doctor: No - Related Data Allergies/Adverse Reactions: No Known Allergies Allergy (Verified 09/03/18 14:28) Past Medical History - General Information source: Patient - Social History Smoking Status: Former Smoker Chew tobacco use (# tins/day): No Frequency of alcohol use: None Drug Abuse: None Family History: Reviewed & Not Pertinent Patient has suicidal ideation: No Patient has homicidal ideation: No - Past Medical History Cardiac Medical History: Denies: Hx Coronary Artery Disease, Hx Heart Attack, Hx Hypertension Pulmonary Medical History: Denies: Hx Asthma, Hx Bronchitis, Hx COPD, Hx Pneumonia, Hx Tuberculosis Neurological Medical History: Denies: Hx Cerebrovascular Accident, Hx Seizures Endocrine Medical History: Denies: Hx Diabetes Mellitus Type 1, Hx Diabetes Mellitus Type 2 Renal/ Medical History: Denies: Hx Peritoneal Dialysis GI Medical History: Reports: Hx Gastroesophageal Reflux Disease, Hx Hiatal Hernia Musculoskeletal Medical History: Reports Hx Arthritis - Back Psychiatric Medical History: Reports: Hx Depression Denies: Hx Schizophrenia Past Surgical History: Reports: Hx Abdominal Surgery - gangrene, Hx Section, Hx Herniorrhaphy, Hx Orthopedic Surgery - Carpel tunnel, Hx Tubal Ligation. Denies: Hx Hysterectomy, Hx Pacemaker - Immunizations Immunizations up to date: Yes Hx Diphtheria, Pertussis, Tetanus Vaccination: Yes Review of Systems - Review of Systems Constitutional: No symptoms reported EENT: No symptoms reported Cardiovascular: No symptoms reported Respiratory: No symptoms reported Gastrointestinal: No symptoms reported Genitourinary: No symptoms reported Female Genitourinary: No symptoms reported Musculoskeletal: No symptoms reported Skin: Change in color Hematologic/Lymphatic: No symptoms reported Neurological/Psychological: No symptoms reported -: Yes All other systems reviewed and negative Physical Exam - Vital signs Vitals: Temp Pulse Resp BP Pulse Ox 98.9 F 70 16 135/96 H 97 09/03/18 14:31 09/03/18 14:31 09/03/18 14:31 09/03/18 14:31 09/03/18 14:31 - Notes Notes: PHYSICAL EXAMINATION: GENERAL: Well-appearing, well-nourished and in no acute distress. HEAD: Atraumatic, normocephalic. EYES: Pupils equal round and reactive to light, extraocular movements intact, conjunctiva are normal. ENT: Nares patent, oropharynx clear without exudates. Moist mucous membranes. NECK: Normal range of motion, supple without lymphadenopathy LUNGS: Breath sounds clear to auscultation bilaterally and equal. No wheezes rales or rhonchi. HEART: Regular rate and rhythm without murmurs ABDOMEN: Soft, nontender, nondistended abdomen. No guarding, no rebound. No masses appreciated. Female : deferred Musculoskeletal: Normal range of motion, no pitting or edema. No cyanosis. NEUROLOGICAL: Cranial nerves grossly intact. Normal speech, normal gait. Normal sensory, motor exams PSYCH: Normal mood, normal affect. SKIN: Warm, Dry, normal turgor, abrasion to the L gluteal fold. No induration, fluctuance. Course - Re-evaluation Re-evalutation: 09/03/18 15:42 No rash appreciated to the L upper thigh. Abrasion to the L gluteal fold. Patient says she's had abscesses develop there previously. No drainage seen. No induration or fluctuance. I will cover with bactrim and keflex for possible abscess developing. Patient instructed to follow-up with her primary care physician this week, to take medication prescribed as directed, and to return to the emergency department for worsening symptoms. - Vital Signs Vital signs: Temp Pulse Resp BP Pulse Ox 98.9 F 70 16 135/96 H 97 09/03/18 14:31 09/03/18 14:31 09/03/18 14:31 09/03/18 14:31 09/03/18 14:31 Discharge - Discharge Clinical Impression: Abrasion Condition: Good Disposition: HOME, SELF-CARE Instructions: Cephalexin ([facility]), MRSA Cellulitis ([facility]), Trimethoprim-Sulfa ([facility]) Prescriptions: Cephalexin Monohydrate [Keflex 500 mg Capsule] 500 mg PO BID 5 Days #14 capsule Sulfamethoxazole/Trimethoprim [Bactrim Ds Tablet] 1 each PO BID #14 tablet Referrals: LUZ CRUM MD [Primary Care Provider] - Follow up as needed
== END 2018-09-03 15:41 | disposition home or self-care (01) ==
LOC: ER 14:26
DX: S30.810A Abrasion of lower back and pelvis, initial encounter (principal); L98.9 Disorder of the skin and subcutaneous tissue, unspecified; X58.XXXA Exposure to other specified factors, initial encounter; Z87.891 Personal history of nicotine dependence
CPT/HCPCS: 99283

== ENCOUNTER 2018-09-17 09:52 | Emergency (ER) | payer OTHER ==
[2018-09-17] MEDS ORDERED: NORMAL SALINE 1000 ML 1,000 ML IV ONE (10:20)
[2018-09-17] MEDS ORDERED: ONDANSETRON 4 MG TAB.RAPDIS PO ONE (10:20)
[2018-09-17] MEDS ORDERED: KETOROLAC TROMETHAMINE INJ/PF 30 MG/1 ML SDV IV ONE (10:20)
--- NOTE | 2018-09-17 10:22 | ER Document Report ---
ED Medical Screen (RME) - General Chief Complaint: Abdominal Pain Stated Complaint: ABDOMINAL/BACK PAIN Time Seen by Provider: 09/17/18 10:13 Notes: 43-year-old female to the emergency department complaining of abdominal pain and back pain. Patient states that she had a perforated bowel in May. Had surgery and long recovery. Now feels pain across the abdomen especially in the upper quadrant radiating around to both flank areas. Some nausea. I have greeted and performed a rapid initial assessment of this patient. A comprehensive ED assessment and evaluation of the patient, analysis of test results and completion of the medical decision making process will be conducted by additional ED providers. TRAVEL OUTSIDE OF THE [place] IN LAST 30 DAYS: No - Related Data Allergies/Adverse Reactions: No Known Allergies Allergy (Verified 09/03/18 14:28) Past Medical History - Social History Chew tobacco use (# tins/day): No Frequency of alcohol use: None Drug Abuse: None Family history: Reviewed & Not Pertinent - Past Medical History Cardiac Medical History: Denies: Hx Coronary Artery Disease, Hx Heart Attack, Hx Hypertension Pulmonary Medical History: Denies: Hx Asthma, Hx Bronchitis, Hx COPD, Hx Pneumonia, Hx Tuberculosis Neurological Medical History: Denies: Hx Cerebrovascular Accident, Hx Seizures Endocrine Medical History: Denies: Hx Diabetes Mellitus Type 1, Hx Diabetes Mellitus Type 2 Renal/ Medical History: Reports: Hx Kidney Stones. Denies: Hx Peritoneal Dialysis GI Medical History: Reports: Hx Gastroesophageal Reflux Disease, Hx Hiatal Hernia Musculoskeltal Medical History: Reports Hx Arthritis - Back Psychiatric Medical History: Reports: Hx Depression Denies: Hx Schizophrenia Past Surgical History: Reports: Hx Abdominal Surgery - gangrene, Hx Section, Hx Herniorrhaphy, Hx Orthopedic Surgery - Carpel tunnel, Hx Tubal Ligation. Denies: Hx Hysterectomy, Hx Pacemaker - Immunizations Immunizations up to date: Yes Hx Diphtheria, Pertussis, Tetanus Vaccination: Yes Review of Systems - Review of Systems Notes: Positive for the following: Abdominal pain and back pain Physical Exam - Vital signs Vitals: Temp Pulse Resp BP Pulse Ox 98.4 F 68 20 143/93 H 100 09/17/18 10:05 09/17/18 10:05 09/17/18 10:05 09/17/18 10:05 09/17/18 10:05 Interpretation: Normal - Respiratory Respiratory status: No respiratory distress Chest status: Nontender Breath sounds: Normal Chest palpation: Normal - Cardiovascular Rhythm: Regular Heart sounds: Normal auscultation Murmur: No Course - Vital Signs Vital signs: Temp Pulse Resp BP Pulse Ox 98.4 F 68 20 143/93 H 100 09/17/18 10:05 09/17/18 10:05 09/17/18 10:05 09/17/18 10:05 09/17/18 10:05
[2018-09-17 11:21] LABS: ABSOLUTE BASOPHILS # (AUTO) 0.1 10^3/uL (0.0-0.2); ABSOLUTE LYMPHOCYTES (AUTO) 1.4 10^3/uL (0.5-4.7); ABSOLUTE MONOCYTES (AUTO) 0.6 10^3/uL (0.1-1.4); ABSOLUTE NEUT (AUTO) 8.1 10^3/uL (1.7-8.2); BASOPHILS % (AUTO) 0.7 % (0-2); EOSINOPHILS % (AUTO) 0.1 % (0-6); HEMATOCRIT 38.8 % (36.0-47.0); HEMOGLOBIN 12.9 g/dL (12.0-15.5); LYMPHOCYTES % (AUTO) 13.2 % (13-45); MEAN CORPUSCULAR HEMOGLOBIN 24.8 pg (27.0-33.4); MEAN CORPUSCULAR HGB CONC 33.2 g/dL (32.0-36.0); MEAN CORPUSCULAR VOLUME 75 fl (80-97); MONOCYTES % (AUTO) 6.3 % (3-13); PLATELET COUNT 365 10^3/uL (150-450); RED BLOOD COUNT 5.21 10^6/uL (3.72-5.28); RED CELL DISTRIBUTION WIDTH 16.9 % (11.5-14.0); SEGMENTED NEUTROPHILS % (AUTO) 79.7 % (42-78); TOTAL CELLS COUNTED % (AUTO) 100 %; WHITE BLOOD COUNT 10.2 10^3/uL (4.0-10.5)
[2018-09-17 11:25] LABS: APPEARANCE,URINE CLOUDY; BILIRUBIN,URINE NEGATIVE (NEGATIVE); COLOR,URINE YELLOW; GLUCOSE, URINE NEGATIVE (NEGATIVE); KETONES,URINE NEGATIVE (NEGATIVE); LEUKOCYTE ESTERASE,URINE LARGE (NEGATIVE); NITRITE,URINE NEGATIVE (NEGATIVE); PROTEIN,URINE 30 mg/dL (NEGATIVE); URINE SPECIFIC GRAVITY 1.012; UROBILINOGEN,URINE NEGATIVE mg/dL (<2.0)
[2018-09-17] MEDS ORDERED: CEFTRIAXONE INJ 1000 MG VIAL IV ONE (11:37)
--- NOTE | 2018-09-17 11:44 | RADIOLOGY REPORT (SQ) ---
EXAM DESCRIPTION: ACUTE ABDOMEN SERIES COMPLETED DATE/TIME: 09/17/2018 11:34 am REASON FOR STUDY: abd pain, recent sx COMPARISON: CT abdomen pelvis 05/21/2018 Abdominal films 05/11/2015, 05/27/2018 NUMBER OF VIEWS: Three views. TECHNIQUE: Frontal chest, supine abdomen and upright abdomen radiographic images acquired. LIMITATIONS: None. FINDINGS: CHEST: No acute infiltrates. No pleural effusion or pneumothorax. Borderline cardiomegal y, stable. No hilar enlargement. FREE AIR: None. No abnormal gas collections. BOWEL GAS PATTERN: Grossly nonobstructive bowel gas pattern. There is bowel gas shadowing over the l eft inguinal region/left hip with multiple bowel anastomotic valdemar present over the left lower pelv is. Question residual small left lower quadrant abdominal wall hernia after repair in May. Conside r CT for followup. CALCIFICATIONS: Right lower pole staghorn calculus in the kidney unchanged HARDWARE: Left lower quadrant anastomotic valdemar SOFT TISSUES: Hepatomegaly, stable BONES: No acute fracture. No worrisome bone lesions. OTHER: No other significant finding. IMPRESSION: Since the prior CT and plain films, patient has undergone repair of the large left lower quadrant panniculus hernia and left lower quadrant bowel resection. On today's study, there are bow el gas shadows over the left inguinal region, question recurrent hernia. Consider CT for followup. TECHNICAL DOCUMENTATION: JOB ID: [id number] [employer]- All Rights Reserved Reading location - IP/workstation name: [email or web address]
[2018-09-17 12:44] LABS: ALANINE AMINOTRANSFERASE 19 U/L (9-52); ALBUMIN 3.4 g/dL (3.5-5.0); ALKALINE PHOSPHATASE 116 U/L (38-126); ANION GAP 10 (5-19); ASPARTATE AMINO TRANSFERASE 19 U/L (14-36); BILIRUBIN,DIRECT 0.3 mg/dL (0.0-0.4); BILIRUBIN,TOTAL 0.9 mg/dL (0.2-1.3); BLOOD UREA NITROGEN 15 mg/dL (7-20); CALCIUM 8.4 mg/dL (8.4-10.2); CARBON DIOXIDE 26 mmol/L (22-30); CHLORIDE 105 mmol/L (98-107); GLUCOSE 97 mg/dL (75-110); LIPASE 141.6 U/L (23-300); POTASSIUM 3.3 mmol/L (3.6-5.0); SODIUM 140.9 mmol/L (137-145); TOTAL PROTEIN 6.4 g/dL (6.3-8.2)
--- NOTE | 2018-09-17 13:46 | RADIOLOGY REPORT (SQ) ---
EXAM DESCRIPTION: U/S RETROPERITON (RENAL/AORTA) COMPLETED DATE/TIME: 09/17/2018 1:33 pm REASON FOR STUDY: eval kidneys for calculi or hydronephrosis COMPARISON: CT abdomen pelvis, 05/21/2018 TECHNIQUE: Dynamic and static grayscale images acquired of the kidneys and bladder and recorded on P ACS. Additional selected color Doppler and spectral images recorded. LIMITATIONS: None. FINDINGS: RIGHT KIDNEY: Normal size, 10.4 cm. Normal echogenicity. No solid or suspicious masses. M oderate hydronephrosis. No calcifications. LEFT KIDNEY: Normal size, 12.2 cm. Normal echogenicity. No solid or suspicious masses. Mild hydrone phrosis. No calcifications. BLADDER: No masses. The bilateral ureteral jets are nonvisualized. OTHER FINDINGS: Incidental finding of a 2.8 cm simple appearing left ovarian cyst, likely functional in the reproductive age setting. IMPRESSION: 1. There is moderate right hydronephrosis, similar in appearance to prior CT examination . There is new, mild left hydronephrosis, of uncertain etiology. No evidence of calculus or other o bstructing lesion. Consider CT to further evaluate. 2. Unremarkable ultrasound appearance of the partially distended urinary bladder. The bilateral ure teral jets are nonvisualized. TECHNICAL DOCUMENTATION: JOB ID: [id number] [employer]- All Rights Reserved Reading location - IP/workstation name: [email or web address]
[2018-09-17] MEDS ORDERED: POTASSIUM CHLORIDE 10 MEQ CAPSULE.ER PO ONE (14:14)
[2018-09-17 14:16] VITALS: BP 121/79
--- NOTE | 2018-09-17 14:34 | ER Document Report ---
ED General - General Chief Complaint: Abdominal Pain Stated Complaint: ABDOMINAL/BACK PAIN Time Seen by Provider: 09/17/18 10:13 Mode of Arrival: Ambulatory Information source: Patient Notes: Patient is a 43-year-old female who presents with chief complaint of low abdominal pain, burning with urination and low back pain. Patient reports this is been going on since yesterday. Patient denies any diarrhea or fever but reports nausea and vomiting. Patient reports past medical history of recurrent UTIs. TRAVEL OUTSIDE OF THE [place] IN LAST 30 DAYS: No - Related Data Allergies/Adverse Reactions: No Known Allergies Allergy (Verified 09/03/18 14:28) Past Medical History - General Information source: Patient - Social History Smoking Status: Current Some Day Smoker Chew tobacco use (# tins/day): No Frequency of alcohol use: None Drug Abuse: None Family History: Reviewed & Not Pertinent Patient has suicidal ideation: No Patient has homicidal ideation: No - Past Medical History Cardiac Medical History: Denies: Hx Coronary Artery Disease, Hx Heart Attack, Hx Hypertension Pulmonary Medical History: Denies: Hx Asthma, Hx Bronchitis, Hx COPD, Hx Pneumonia, Hx Tuberculosis Neurological Medical History: Denies: Hx Cerebrovascular Accident, Hx Seizures Endocrine Medical History: Denies: Hx Diabetes Mellitus Type 1, Hx Diabetes Mellitus Type 2 Renal/ Medical History: Reports: Hx Kidney Stones. Denies: Hx Peritoneal Dialysis GI Medical History: Reports: Hx Gastroesophageal Reflux Disease, Hx Hiatal Hernia Musculoskeletal Medical History: Reports Hx Arthritis - Back Psychiatric Medical History: Reports: Hx Depression Denies: Hx Schizophrenia Past Surgical History: Reports: Hx Abdominal Surgery - gangrene, Hx Section, Hx Herniorrhaphy, Hx Orthopedic Surgery - Carpel tunnel, Hx Tubal Ligation. Denies: Hx Hysterectomy, Hx Pacemaker - Immunizations Immunizations up to date: Yes Hx Diphtheria, Pertussis, Tetanus Vaccination: Yes Review of Systems - Review of Systems Gastrointestinal: Abdominal pain - low Genitourinary: Dysuria Musculoskeletal: Back pain Physical Exam - Vital signs Vitals: Temp Pulse Resp BP Pulse Ox 98.4 F 68 20 143/93 H 100 09/17/18 10:05 09/17/18 10:05 09/17/18 10:05 09/17/18 10:05 09/17/18 10:05 - Notes Notes: PHYSICAL EXAMINATION: GENERAL: Well-appearing, well-nourished and in no acute distress. HEAD: Atraumatic, normocephalic. EYES: Pupils equal round and reactive to light, extraocular movements intact, conjunctiva are normal. ENT: Nares patent, oropharynx clear without exudates. Moist mucous membranes. NECK: Normal range of motion, supple without lymphadenopathy LUNGS: Breath sounds clear to auscultation bilaterally and equal. No wheezes rales or rhonchi. HEART: Regular rate and rhythm without murmurs ABDOMEN: Soft, nontender, nondistended abdomen. No guarding, no rebound. No masses appreciated. Female : No CVA tenderness. Musculoskeletal: Normal range of motion, no pitting or edema. No cyanosis. Tenderness to palpation across lumbar spine and bilateral paraspinous muscles. NEUROLOGICAL: Cranial nerves grossly intact. Normal speech, normal gait. Normal sensory, motor exams PSYCH: Normal mood, normal affect. SKIN: Warm, Dry, normal turgor, no rashes or lesions noted. Course - Re-evaluation Re-evalutation: CBC is unremarkable. CMP with mild hypokalemia at 3.3. Creatinine mildly elevated at 1.38. Urinalysis with large leukocyte esterase and WBC clumps. Renal ultrasound reveals mild hydronephrosis but no hydroureter or renal stones noted. Patient has been resting comfortably while in the department. Examination is unremarkable other than tenderness to palpation across paraspinous muscles of the low back. No CVA tenderness. Patient has not vomited since arrival to the department. Patient's vital signs are stable. Patient given a p.o. trial and did not vomit. Patient will be discharged home with p.o. antibiotics. Strict ED return precautions. Patient verbalizes understanding of same. - Vital Signs Vital signs: Temp Pulse Resp BP Pulse Ox 97.2 F 51 L 16 121/79 100 09/17/18 14:14 09/17/18 14:14 09/17/18 14:14 09/17/18 14:14 09/17/18 14:14 - Laboratory Result Diagrams: 09/17/18 09:45 09/17/18 12:06 Laboratory results interpreted by me: 09/17/18 09/17/18 09/17/18 09:45 09:45 12:06 MCV 75 L MCH 24.8 L RDW 16.9 H Seg Neutrophils % 79.7 H Potassium 3.3 L Creatinine 1.38 H Est GFR ( Amer) 51 L Est GFR (Non-Af Amer) 42 L Albumin 3.4 L Urine Protein 30 H Urine Blood SMALL H Ur Leukocyte Esterase LARGE H Discharge - Discharge Clinical Impression: Pyelonephritis Vomiting Qualifiers: Vomiting type: unspecified Vomiting Intractability: unspecified Nausea presence : unspecified Qualified Code(s): R11.10 - Vomiting, unspecified Condition: Stable Disposition: HOME, SELF-CARE Additional Instructions: PYELONEPHRITIS: Your evaluation shows evidence of pyelonephritis. This is an infection in the kidney. Typical symptoms are fever, pain in the flank, pain on urination, and frequent urination. Many cases of pyelonephritis can be treated at home. Hospital care may be necessary for patients who are very ill, or elderly or . Pyelonephritis is treated with antibiotics. Be sure to take all the medication as prescribed. Drink plenty of liquids (about three quarts per day) . You may take acetaminophen for fever. You should feel significantly improved within two days. You should have a recheck of your urine in about one week to insure that the infection is gone. Return for a re-examination if your symptoms worsen in any way -- such as high fever, shaking chills, severe weakness or dizziness, severe pain, or inability to pass your urine. ANTINAUSEA MEDICATION: You have been given a medication to suppress nausea and vomiting. This type of medication can be given as a shot, pill, or suppository. It will usually last for many hours. Pills and shots usually last six to eight hours, suppositories last about 12 hours. For the typical illness, only one or two doses of the medication may be necessary. Mild lightheadedness may occur. This type of medicine can cause drowsiness. Do not drive or operate dangerous machinery while under its influence. Do not mix with alcohol. See your doctor at once if you have muscle spasms or tightness, or uncontrollable motions (particularly of the neck, mouth, or jaw). Persistent vomiting or severe lightheadedness should also be evaluated by the physician. ANTIBIOTIC THERAPY: You have been given an antibiotic prescription. It's important that you take all the medication, unless instructed otherwise by your physician. Failure to complete the entire course can result in relapse of your condition. Common side effects of antibiotics include nausea, intestinal cramping, or diarrhea. Women may develop vaginal yeast infections, and babies can get yeast (thrush) in the mouth following the use of antibiotics. Contact your physician if you develop significant side effects from this medication. Allergy to this antibiotic can result in hives, wheezing, faintness, or itching. If symptoms of allergy occur, stop the medication and call the doctor. ROCEPHIN: You have been given an injection of an antibiotic called Rocephin ( ceftriaxone). Sometimes the injection must be combined with antibiotic pills. For some infections, such as an uncomplicated ear infection, Rocephin provides all the antibiotic that's needed. The antibiotic will be in your body for about two days. For serious infections, we usually repeat doses of Rocephin daily. Side effects are very unusual following a shot. Women may develop vaginal yeast infections, and babies can get yeast (thrush) in the mouth following the use of antibiotics. Contact your physician if you have symptoms with this medication. Allergy to this antibiotic can result in hives, wheezing, faintness, or itching. If symptoms of allergy occur, call the doctor at once. CEPHALEXIN: The antibiotic you've been prescribed is a member of the cephalosporin class. This type of antibiotic covers a wide variety of infections, including those of the skin, lungs, and urinary tract. It's useful for staph infections. This antibiotic is slightly similar to the penicillin family. In rare cases , a person who is allergic to penicillin will also be allergic to this medication. If you have had a severe allergic reaction to penicillin, and have not taken this antibiotic since that time, notify your doctor. Antibiotics which cover many germs ("broad spectrum" antibiotics) are more likely to cause diarrhea or "yeast" infections. Women prone to vaginal yeast problems may suffer an attack after taking this antibiotic. In infants, oral thrush (white spots "stuck" on the cheek) or yeast diaper rash may result. See your doctor if these problems occur. Call at once if you develop itching, hives , shortness of breath, or lightheadedness. USE OF ACETAMINOPHEN (Tylenol): Acetaminophen may be taken for pain relief or fever control. It's much safer than aspirin, offering a wider range of "safe" dosages. It is safe during . Some brand names are Tylenol, Panadol, Datril, Anacin 3, Tempra, and Liquiprin. Acetaminophen can be repeated every four hours. The following are maximum recommended dosages: >89 pounds or adults 650 mg to 900 mg Acetaminophen can be repeated every four hours. Maximum dose not to exceed 4000 mg a day. FOLLOW-UP CARE: If you have been referred to a physician for follow-up care, call the physician s office for an appointment as you were instructed or within the next two days. If you experience worsening or a significant change in your symptoms, notify the physician immediately or return to the Emergency Department at any time for re-evaluation. Please take antibiotics as prescribed. You may also take ibuprofen 600 mg every 6 hours for pain or inflammation. Your urine will be sent for a culture, we will call you if there is any abnormality with this. Please make sure to drink plenty of fluids. Return to the emergency department immediately if you are unable to hold down fluids due to vomiting, you develop a fever that is persistent or you have any other symptom that is concerning to you. Prescriptions: Cephalexin [Cephalexin 500 MG Tablet] 1 tab PO QID #28 tablet Hydrocodone Bit/Acetaminophen [Hydrocodon-Acetaminophen 5-325] 1 each PO Q4H # 12 tablet Ondansetron [Zofran Odt 4 mg Tablet] 1 - 2 tab PO Q4H PRN #15 tab.rapdis PRN Reason: For Nausea/Vomiting Forms: Return to Work Referrals: ZINA BEAN DO [Primary Care Provider] - Follow up as needed
== END 2018-09-17 14:55 | disposition home or self-care (01) ==
LOC: ER 09:52
DX: N12 Tubulo-interstitial nephritis, not specified as acute or chronic (principal); E87.6 Hypokalemia; N13.30 Unspecified hydronephrosis; R11.2 Nausea with vomiting, unspecified; R10.30 Lower abdominal pain, unspecified; M54.5 Low back pain; F17.200 Nicotine dependence, unspecified, uncomplicated; Z87.442 Personal history of urinary calculi; Z87.19 Personal history of other diseases of the digestive system; Z98.51 Tubal ligation status
CPT/HCPCS: 99284; 96361; 96375; 96365; 36415; 83690; 85025; 81025; 80053; 81001; 74022; 76770; S0119; J1885; J0696; J7030

== ENCOUNTER 2019-06-29 17:01 | Emergency (ER) | payer OTHER ==
[2019-06-29] MEDS ORDERED: ASPIRIN 81 MG TABLET, CHEWABLE PO ONE (17:23)
--- NOTE | 2019-06-29 17:23 | ER Document Report ---
ED Medical Screen (RME) - General Chief Complaint: Chest Pain Stated Complaint: CHEST PAIN Time Seen by Provider: 06/29/19 17:15 Primary Care Provider: ZINA BEAN DO [Primary Care Provider] - Follow up as needed Mode of Arrival: Ambulatory Information source: Patient Notes: This 44-year-old female presents emergency department with complaints of chest pain is becoming going all morning. Denies chest pain at this time. Denies pain that radiates anywhere. Denies nausea vomiting fever diarrhea. Denies history of cardiac disease. Also complains of having low abdominal pain for the past couple weeks. EKG sinus rhythm, patient denies pain with palpation to her abdomen. I have greeted and performed a rapid initial assessment of this patient. A comprehensive ED assessment and evaluation of the patient, analysis of test results and completion of the medical decision making process will be conducted by additional ED providers. Dictation of this chart was performed using voice recognition software; therefore, there may be some unintended grammatical errors. TRAVEL OUTSIDE OF THE [place] IN LAST 30 DAYS: No - Related Data Allergies/Adverse Reactions: No Known Allergies Allergy (Verified 06/29/19 17:02) Past Medical History - Social History Family history: Reviewed & Not Pertinent - Past Medical History Cardiac Medical History: Denies: Hx Coronary Artery Disease, Hx Heart Attack, Hx Hypertension Pulmonary Medical History: Denies: Hx Asthma, Hx Bronchitis, Hx COPD, Hx Pneumonia, Hx Tuberculosis Neurological Medical History: Denies: Hx Cerebrovascular Accident, Hx Seizures Endocrine Medical History: Denies: Hx Diabetes Mellitus Type 1, Hx Diabetes Mellitus Type 2 Renal/ Medical History: Reports: Hx Kidney Stones. Denies: Hx Peritoneal Dialysis GI Medical History: Reports: Hx Gastroesophageal Reflux Disease, Hx Hiatal Hernia Musculoskeltal Medical History: Reports Hx Arthritis - Back Psychiatric Medical History: Reports: Hx Depression Denies: Hx Schizophrenia Past Surgical History: Reports: Hx Abdominal Surgery - gangrene, Hx Section, Hx Herniorrhaphy, Hx Orthopedic Surgery - Carpel tunnel, Hx Tubal Ligation. Denies: Hx Hysterectomy, Hx Pacemaker - Immunizations Immunizations up to date: Yes Hx Diphtheria, Pertussis, Tetanus Vaccination: Yes Physical Exam - Vital signs Vitals: Temp Pulse Resp BP Pulse Ox 98.4 F 65 18 134/89 H 99 06/29/19 17:12 06/29/19 17:12 06/29/19 17:12 06/29/19 17:12 06/29/19 17:12 Course - Vital Signs Vital signs: Temp Pulse Resp BP Pulse Ox 98.4 F 65 18 134/89 H 99 06/29/19 17:12 06/29/19 17:12 06/29/19 17:12 06/29/19 17:12 06/29/19 17:12 Doctor's Discharge - Discharge Referrals: ZINA BEAN DO [Primary Care Provider] - Follow up as needed
[2019-06-29] MEDS ORDERED: MAG HYDROX/AL HYDROX/SIMETH SUSP 30 ML UDCUP PO ONE (17:50)
[2019-06-29] MEDS ORDERED: LIDOCAINE 2% VISCOUS SOLN 20 ML UDCUP PO ONE (17:50)
--- NOTE | 2019-06-29 17:54 | RADIOLOGY REPORT (SQ) ---
EXAM DESCRIPTION: CHEST 2 VIEWS COMPLETED DATE/TIME: 06/29/2019 5:44 pm REASON FOR STUDY: cp COMPARISON: 07/13/2013 EXAM PARAMETERS: NUMBER OF VIEWS: two views TECHNIQUE: Digital Frontal and Lateral radiographic views of the chest acquired. RADIATION DOSE: NA LIMITATIONS: none FINDINGS: LUNGS AND PLEURA: No opacities, masses or pneumothorax. No pleural effusion. MEDIASTINUM AND HILAR STRUCTURES: No masses or contour abnormalities. HEART AND VASCULAR STRUCTURES: Borderline cardiomegaly. No pulmonary edema. BONES: No acute findings. HARDWARE: None in the chest. OTHER: No other significant finding. IMPRESSION: Borderline cardiomegaly without pulmonary edema. TECHNICAL DOCUMENTATION: JOB ID: [id number] [employer]- All Rights Reserved Reading location - IP/workstation name: [email or web address]
--- NOTE | 2019-06-29 17:54 | ER Document Report ---
ED General - General Chief Complaint: Chest Pain Stated Complaint: CHEST PAIN Time Seen by Provider: 06/29/19 17:15 Primary Care Provider: ZINA BEAN DO [Primary Care Provider] - Follow up as needed Mode of Arrival: Ambulatory TRAVEL OUTSIDE OF THE [place] IN LAST 30 DAYS: No - HPI Notes: Patient is a 43-year-old female who presents the emergency department for evaluation of left-sided chest pain. It started this afternoon. She cannot describe it in any way. She states is been intermittent, lasting about 10 minutes at a time. Nothing seems to make it better or worse. She denies any radiation of the pain, no associated symptoms. On further questioning the patient does have a history of reflux. She states she normally takes an rrek-cym-ocdwsje medication for her acid reflux first thing in the morning, but she forgot to take it today. For breakfast she had a bowl of cereal, 2 chandler and egg McGriddle sandwiches, and an apple pie. - Related Data Allergies/Adverse Reactions: No Known Allergies Allergy (Verified 06/29/19 17:02) Past Medical History - General Information source: Patient - Social History Smoking Status: Never Smoker Frequency of alcohol use: None Drug Abuse: None Family History: Reviewed & Not Pertinent, DM Patient has suicidal ideation: No Patient has homicidal ideation: No - Past Medical History Cardiac Medical History: Denies: Hx Coronary Artery Disease, Hx Heart Attack, Hx Hypertension Pulmonary Medical History: Denies: Hx Asthma, Hx Bronchitis, Hx COPD, Hx Pneumonia, Hx Tuberculosis Neurological Medical History: Denies: Hx Cerebrovascular Accident, Hx Seizures Endocrine Medical History: Denies: Hx Diabetes Mellitus Type 1, Hx Diabetes Mellitus Type 2 Renal/ Medical History: Reports: Hx Kidney Stones. Denies: Hx Peritoneal Dialysis GI Medical History: Reports: Hx Gastroesophageal Reflux Disease, Hx Hiatal Hernia Musculoskeletal Medical History: Reports Hx Arthritis - Back Psychiatric Medical History: Reports: Hx Depression Denies: Hx Schizophrenia Past Surgical History: Reports: Hx Abdominal Surgery - gangrene, Hx Section, Hx Herniorrhaphy, Hx Orthopedic Surgery - Carpel tunnel, Hx Tubal Ligation. Denies: Hx Hysterectomy, Hx Pacemaker - Immunizations Immunizations up to date: Yes Hx Diphtheria, Pertussis, Tetanus Vaccination: Yes Review of Systems - Review of Systems Constitutional: No symptoms reported EENT: No symptoms reported Cardiovascular: See HPI Respiratory: No symptoms reported Gastrointestinal: No symptoms reported Genitourinary: No symptoms reported Musculoskeletal: No symptoms reported Skin: No symptoms reported Neurological/Psychological: No symptoms reported Physical Exam - Vital signs Vitals: Temp Pulse Resp BP Pulse Ox 98.4 F 65 18 134/89 H 99 06/29/19 17:12 06/29/19 17:12 06/29/19 17:12 06/29/19 17:12 06/29/19 17:12 - Notes Notes: Vital signs reviewed, please refer to chart. Head is normocephalic, atraumatic. Pupils equal round, reactive to light. Neck is supple without meningismus. Heart is regular rate and rhythm. Lungs are clear to auscultation bilaterally. Chest wall is nontender. Abdomen is soft, nontender, normoactive bowel sounds throughout. Extremities without cyanosis, clubbing. Posterior calves are nontender. Peripheral pulses are equal. Skin is warm and dry. Patient is awake, alert, neurological exam is nonfocal. Course - Re-evaluation Re-evalutation: 06/29/19 17:53 Patient presents to the emergency department for evaluation. This is a 44-year-old female who was at rest when she has sudden onset left-sided chest pain, she is having difficulty describing. She had initial laboratory investigations, imaging, and EKG is ordered through triage. My strong suspicion is that this is gastro related. Patient has a history of acid reflux, did not take her medication, and had a sizable breakfast that certainly could exacerbate dyspepsia/reflux. In addition to evaluating cardiac labs, GI cocktail was ordered. We will continue to monitor. 06/29/19 19:01 Patient remained entirely chest pain-free throughout the course today. Her laboratory investigations were unremarkable. She did have some white blood cells in her urine, but denies any urinary symptoms of any sort. Urine was sent for culture, we will contact the patient if any bacteria grow. Otherwise, the patient is told she needs to follow-up with Dr. Hatch. She should address her risk factors, return to the emergency department with worsening or new concerning symptoms of any sort. - Vital Signs Vital signs: Temp Pulse Resp BP Pulse Ox 98.4 F 65 18 134/89 H 99 06/29/19 17:12 06/29/19 17:12 06/29/19 17:12 06/29/19 17:12 06/29/19 17:12 - Laboratory Result Diagrams: 06/29/19 17:28 06/29/19 17:28 Laboratory results interpreted by me: 06/29/19 06/29/19 17:28 17:28 Carbon Dioxide 31 H Urine Protein 30 H Urine Blood MODERATE H Ur Leukocyte Esterase LARGE H - Diagnostic Test Radiology reviewed: Reports reviewed Radiology results interpreted by me: 06/29/19 19:01 Chest X-Ray 06/29/19 17:23 IMPRESSION: Borderline cardiomegaly without pulmonary edema. - EKG Interpretation by Me Additional EKG results interpreted by me: 06/29/19 17:54 Sinus mechanism with a rate of 63 bpm. Normal axis and intervals, no acute ST changes concerning for ischemia or infarction. Discharge - Discharge Clinical Impression: Dyspepsia Chest pain Qualifiers: Chest pain type: unspecified Qualified Code(s): R07.9 - Chest pain, unspecified Condition: Stable Disposition: HOME, SELF-CARE Instructions: Reflux Disease (GERD) (OM), Chest Pain of Unclear Cause (OM) Additional Instructions: Continue your home medication as directed for acid reflux. Follow-up with Dr. Hatch in 1 to 2 weeks. Return to the emergency department with worsening or new concerning symptoms of any sort. Referrals: ZINA BEAN DO [Primary Care Provider] - Follow up as needed
[2019-06-29 18:04] LABS: ABSOLUTE BASOPHILS # (AUTO) 0.1 10^3/uL (0.0-0.2); ABSOLUTE EOSINOPHILS # (AUTO) 0.2 10^3/uL (0.0-0.6); ABSOLUTE LYMPHOCYTES (AUTO) 2.8 10^3/uL (0.5-4.7); ABSOLUTE MONOCYTES (AUTO) 0.5 10^3/uL (0.1-1.4); BASOPHILS % (AUTO) 0.7 % (0-2); EOSINOPHILS % (AUTO) 2.5 % (0-6); HEMATOCRIT 36.4 % (36.0-47.0); LYMPHOCYTES % (AUTO) 37.5 % (13-45); MEAN CORPUSCULAR HEMOGLOBIN 27.5 pg (27.0-33.4); MEAN CORPUSCULAR VOLUME 83 fl (80-97); MONOCYTES % (AUTO) 6.7 % (3-13); PLATELET COUNT 317 10^3/uL (150-450); RED BLOOD COUNT 4.38 10^6/uL (3.72-5.28); SEGMENTED NEUTROPHILS % (AUTO) 52.6 % (42-78); TOTAL CELLS COUNTED % (AUTO) 100 %; WHITE BLOOD COUNT 7.6 10^3/uL (4.0-10.5)
[2019-06-29 18:12] LABS: APPEARANCE,URINE CLOUDY; BILIRUBIN,URINE NEGATIVE (NEGATIVE); COLOR,URINE YELLOW; GLUCOSE, URINE NEGATIVE (NEGATIVE); KETONES,URINE NEGATIVE (NEGATIVE); LEUKOCYTE ESTERASE,URINE LARGE (NEGATIVE); NITRITE,URINE NEGATIVE (NEGATIVE); PROTEIN,URINE 30 mg/dL (NEGATIVE); UROBILINOGEN,URINE NEGATIVE mg/dL (<2.0)
[2019-06-29 18:17] LABS: ALBUMIN 3.9 g/dL (3.5-5.0); ALKALINE PHOSPHATASE 91 U/L (38-126); ANION GAP 7 (5-19); ASPARTATE AMINO TRANSFERASE 16 U/L (14-36); BILIRUBIN,DIRECT 0.3 mg/dL (0.0-0.4); BILIRUBIN,TOTAL 0.4 mg/dL (0.2-1.3); BLOOD UREA NITROGEN 19 mg/dL (7-20); CALCIUM 9.1 mg/dL (8.4-10.2); CARBON DIOXIDE 31 mmol/L (22-30); CHLORIDE 100 mmol/L (98-107); CREATINE KINASE 58 U/L (30-135); GLUCOSE 93 mg/dL (75-110); TOTAL PROTEIN 6.9 g/dL (6.3-8.2)
--- NOTE | 2019-06-29 18:29 | EKG REPORT ---
SEVERITY:- BORDERLINE ECG - SINUS RHYTHM NONSPECIFIC INFERIOR ST-T CHANGES : Confirmed by: Shane Hemphill MD 29-Jun-2019 18:29:19
[2019-06-29 19:30] VITALS: BP 126/88
== END 2019-06-29 19:30 | disposition home or self-care (01) ==
LOC: ER 17:01
DX: R07.9 Chest pain, unspecified (principal); R10.13 Epigastric pain
CPT/HCPCS: 93005; 99285; 36415; 87086; 82550; 83690; 85025; 81025; 87088; 80053; 81001; 84484; 87186; 71046; 93010; J3490

== ENCOUNTER 2019-10-15 00:49 | Emergency (ER) | payer SELFPAY ==
[2019-10-15 02:07] LABS: ABSOLUTE LYMPHOCYTES (AUTO) 1.2 10^3/uL (0.5-4.7); ABSOLUTE MONOCYTES (AUTO) 0.9 10^3/uL (0.1-1.4); ABSOLUTE NEUT (AUTO) 16.6 10^3/uL (1.7-8.2); BASOPHILS % (AUTO) 0.2 % (0-2); EOSINOPHILS % (AUTO) 0.2 % (0-6); HEMATOCRIT 46.7 % (36.0-47.0); HEMOGLOBIN 15.4 g/dL (12.0-15.5); LYMPHOCYTES % (AUTO) 6.2 % (13-45); MEAN CORPUSCULAR VOLUME 82 fl (80-97); PLATELET COUNT 476 10^3/uL (150-450); RED BLOOD COUNT 5.71 10^6/uL (3.72-5.28); RED CELL DISTRIBUTION WIDTH 14.7 % (11.5-14.0); SEGMENTED NEUTROPHILS % (AUTO) 88.4 % (42-78); TOTAL CELLS COUNTED % (AUTO) 100 %; WHITE BLOOD COUNT 18.7 10^3/uL (4.0-10.5)
[2019-10-15 02:26] LABS: ALKALINE PHOSPHATASE 129 U/L (38-126); ASPARTATE AMINO TRANSFERASE 27 U/L (14-36); BILIRUBIN,DIRECT 0.2 mg/dL (0.0-0.4); BLOOD UREA NITROGEN 16 mg/dL (7-20); CALCIUM 10.6 mg/dL (8.4-10.2); CARBON DIOXIDE 24 mmol/L (22-30); CHLORIDE 96 mmol/L (98-107); GLUCOSE 151 mg/dL (75-110); POTASSIUM 3.9 mmol/L (3.6-5.0); TOTAL PROTEIN 8.9 g/dL (6.3-8.2)
[2019-10-15 02:33] LABS: ANION GAP 20 (5-19)
[2019-10-15 06:47] LABS: APPEARANCE,URINE CLOUDY; BILIRUBIN,URINE NEGATIVE (NEGATIVE); COLOR,URINE AMBER; GLUCOSE, URINE NEGATIVE (NEGATIVE); KETONES,URINE NEGATIVE (NEGATIVE); LEUKOCYTE ESTERASE,URINE LARGE (NEGATIVE); NITRITE,URINE NEGATIVE (NEGATIVE); PROTEIN,URINE 100 mg/dL (NEGATIVE); URINE SPECIFIC GRAVITY 1.023; UROBILINOGEN,URINE NEGATIVE mg/dL (<2.0)
[2019-10-15] MEDS ORDERED: NORMAL SALINE 1000 ML 1,000 ML IV ONE (09:42)
[2019-10-15] MEDS ORDERED: MORPHINE SULFATE 10 MG/ML INJ IV ONE (09:42)
[2019-10-15] MEDS ORDERED: ONDANSETRON HCL INJ/PF 4 MG/2 ML SDV IV ONE (09:42)
--- NOTE | 2019-10-15 10:58 | RADIOLOGY REPORT (SQ) ---
EXAM DESCRIPTION: CT ABD/PELVIS WITH IV ONLY COMPLETED DATE/TIME: 10/15/2019 10:34 am REASON FOR STUDY: LLQ abd pain, vomiting, leukocytosis COMPARISON: None. TECHNIQUE: CT scan of the abdomen and pelvis performed using helical scanning technique with dynamic intravenous contrast injection. No oral contrast. Images reviewed with lung, soft tissue, and bone windows. Reconstructed coronal and sagittal MPR images reviewed. Delayed images for evaluation of the urinary system also acquired. All images stored on PACS. All CT scanners at this facility use dose modulation, iterative reconstruction, and/or weight based d osing when appropriate to reduce radiation dose to as low as reasonably achievable (ALARA). [facility]: Dose Right [facility]: CareDose [facility]: Dose Right [facility]: Teradose 4D [facility]: Simply Zesty CONTRAST TYPE AND DOSE: contrast/concentration: Isovue 350.00 mg/ml; Total Contrast Delivered: 98.0 ml; Total Saline Delivered: 70.6 ml RENAL FUNCTION: GFR > 60. RADIATION DOSE: CT Rad equipment meets quality standard of care and radiation dose reduction techniq ues were employed. CTDIvol: 15.8 - 18.3 mGy. DLP: 1780 mGy-cm.. LIMITATIONS: None. FINDINGS: LOWER CHEST: No significant findings. No nodules or infiltrates. LIVER: Fatty. Enlarged 22 cm. SPLEEN: Normal size. No focal lesions. PANCREAS: No masses. No significant calcifications. No adjacent inflammation or peripancreatic fluid collections. Pancreatic duct not dilated. GALLBLADDER: Minimal cholelithiasis. No acute cholecystitis. ADRENAL GLANDS: No significant masses or asymmetry. RIGHT KIDNEY AND URETER: Marked hydronephrosis with areas of cortical thinning. Mildly delayed nephr ogram with numerous collecting system stones. There is a chronic large stone in the renal pelvis ext ending to the UVJ. This stone measures just under 2 cm in the transverse dimension with Hounsfield u nits in the 5- 600 range. LEFT KIDNEY AND URETER: No solid masses. No significant calcification. No hydronephrosis or hydrouret er. AORTA AND VESSELS: No aneurysm. No dissection. Renal arteries, SMA, celiac without stenosis. RETROPERITONEUM: No retroperitoneal adenopathy, hemorrhage or masses. BOWEL AND PERITONEAL CAVITY: There is a large lower ventral abdominal hernia sac which looks chronic. This contains loops of large and small bowel. Some of the loops look slightly thick-walled and enh ancing. There is mild fluid within the hernia sac. No fixed obstruction identified. APPENDIX: Not visualized. PELVIS: No mass. No free fluid. Normal bladder. ABDOMINAL WALL: As above. BONES: No significant or acute findings. OTHER: No other significant finding. IMPRESSION: 1. Chronic right hydronephrosis with stones as above. 2. Ventral abdominal hernia, chronic. Some of the bowel within the hernia looks thick-walled and enh ancing with regional fluid in the hernia sac. This could reflect inflammation of these loops. No fi xed mechanical obstruction detected. TECHNICAL DOCUMENTATION: JOB ID: [id number] Quality ID # [id number]: Final reports with documentation of one or more dose reduction techniques (e.g., Au tomated exposure control, adjustment of the mA and/or kV according to patient size, use of iterative reconstruction technique) 2010 [employer] All Rights Reserved Reading location - IP/workstation name: [email or web address]
--- NOTE | 2019-10-15 11:25 | ER Document Report ---
ED General - General Chief Complaint: Nausea/Vomiting Stated Complaint: ABDOMINAL PAIN Time Seen by Provider: 10/15/19 08:07 Primary Care Provider: NOVA SOTELO MD [Primary Care Provider] - Follow up in 3-5 days TRAVEL OUTSIDE OF THE [place] IN LAST 30 DAYS: No - HPI Notes: 44 year old female to the ED with C/O NV, generalized abdominal pain that began yesterday morning at 4 am. States that she had eaten at [employer] around 8 pm and then awoke with abd pain and vomiting. States that she vomited several times and then thought she was better. States that she tried to eat some crackers but then she began to vomit again. She has a signficant past medical history of perforated diverticulitis and hernia repair where the mesh got infected and her intestines were gangrenous. She has never had a small bowel obstruction. She denies any NV. States when she is vomiting, she does sweat. Denies any chest pain, SOB, diarrhea, urinary complaints. - Related Data Allergies/Adverse Reactions: No Known Allergies Allergy (Verified 10/15/19 07:39) Home Medications: acid reflux med-unk name-daily Past Medical History - General Information source: Patient - Social History Smoking Status: Never Smoker Frequency of alcohol use: None Drug Abuse: None Lives with: Family Family History: Reviewed & Not Pertinent, DM Patient has suicidal ideation: No Patient has homicidal ideation: No - Past Medical History Cardiac Medical History: Denies: Hx Coronary Artery Disease, Hx Heart Attack, Hx Hypertension Pulmonary Medical History: Denies: Hx Asthma, Hx Bronchitis, Hx COPD, Hx Pneumonia, Hx Tuberculosis Neurological Medical History: Denies: Hx Cerebrovascular Accident, Hx Seizures Endocrine Medical History: Denies: Hx Diabetes Mellitus Type 1, Hx Diabetes Mellitus Type 2 Renal/ Medical History: Reports: Hx Kidney Stones. Denies: Hx Peritoneal Dialysis GI Medical History: Reports: Hx Gastroesophageal Reflux Disease, Hx Hiatal Hernia Musculoskeletal Medical History: Reports Hx Arthritis - Back Psychiatric Medical History: Reports: Hx Depression Denies: Hx Schizophrenia Past Surgical History: Reports: Hx Abdominal Surgery - gangrene, Hx Section, Hx Herniorrhaphy, Hx Orthopedic Surgery - Carpel tunnel, Hx Tubal Ligation. Denies: Hx Hysterectomy, Hx Pacemaker - Immunizations Immunizations up to date: Yes Hx Diphtheria, Pertussis, Tetanus Vaccination: Yes Review of Systems - Review of Systems Constitutional: Diaphoresis - with vomiting. denies: Chills, Fever EENT: No symptoms reported Cardiovascular: denies: Chest pain, Palpitations, Syncope, Dizziness, Lightheaded Respiratory: denies: Cough, Short of breath Gastrointestinal: Abdominal pain, Nausea, Vomiting. denies: Diarrhea Genitourinary: No symptoms reported. denies: Frequency, Flank pain Female Genitourinary: No symptoms reported Musculoskeletal: No symptoms reported Skin: No symptoms reported Hematologic/Lymphatic: No symptoms reported Neurological/Psychological: No symptoms reported -: Yes All other systems reviewed and negative Physical Exam - Vital signs Vitals: Temp Pulse Resp BP Pulse Ox 98.7 F 84 20 105/77 98 10/15/19 01:13 10/15/19 01:13 10/15/19 01:13 10/15/19 01:13 10/15/19 01:13 Interpretation: Normal - General General appearance: Appears well, Alert In distress: None - HEENT Head: Normocephalic, Atraumatic Eyes: Normal Pupils: PERRL Ears: Normal External canal: Normal Tympanic membrane: Normal Sinus: Normal Nasal: Normal Mouth/Lips: Normal Mucous membranes: Normal Pharynx: Normal Neck: Normal - Respiratory Respiratory status: No respiratory distress Chest status: Nontender. No: Accessory muscle use Breath sounds: Normal. No: Rales, Rhonchi, Stridor, Wheezing Chest palpation: Normal - Cardiovascular Rhythm: Regular Heart sounds: Normal auscultation Murmur: No - Abdominal Inspection: Normal Distension: No distension Bowel sounds: Normal Tenderness: Tender - there is TTP over the epigastrium and to the LLQ. Noted large midline surgical scar. Noted two ventral hernias to the left side of the abdomen that are reducible. Organomegaly: No organomegaly - Back Back: Normal, Nontender. No: CVA tenderness - Extremities General upper extremity: Normal inspection, Nontender, Normal color, Normal ROM, Normal temperature General lower extremity: Normal inspection, Nontender, Normal color, Normal ROM, Normal temperature, Normal weight bearing. No: Melisa's sign - Neurological Neuro grossly intact: Yes Cognition: Normal Orientation: AAOx4 Sugar Coma Scale Eye Opening: Spontaneous Sugar Coma Scale Verbal: Oriented Sugar Coma Scale Motor: Obeys Commands [place] Coma Scale Total: 15 Speech: Normal Cranial nerves: Normal Cerebellar coordination: Normal Motor strength normal: LUE, RUE, LLE, RLE Additional motor exam normals: Equal service manager. No: Pronator drift Sensory: Normal - Psychological Associated symptoms: Normal affect, Normal mood - Skin Skin Temperature: Warm Skin Moisture: Dry Skin Color: Normal Course - Re-evaluation Re-evalutation: 10/15/19 patient has done well here in the ER. She is currently tolerating ice chips. States she feels much better after fluids, pain meds, anti-emetics. Noted CT reading-- no acute infectious process, no SBO. Noted that patient does have a leukocytosis and suspect that this is related to the amount of vomiting she has been having. Plan will be to discharge patient home and have her follow with PCP. Encouraged to return immediately if worsening pain, intractable vomiting, fevers. Patient agrees with the plan. Noted stable hydronephrosis on CT and some mild inflammation to bowel but not suggestive of SBO or acute colitis - these findings were discussed with patient. - Vital Signs Vital signs: Temp Pulse Resp BP Pulse Ox 97.5 F 60 15 112/66 100 10/15/19 11:55 10/15/19 11:55 10/15/19 11:55 10/15/19 11:55 10/15/19 11:55 - Laboratory Result Diagrams: 10/15/19 01:37 10/15/19 01:37 Laboratory results interpreted by me: 10/15/19 10/15/19 10/15/19 01:37 01:37 01:37 WBC 18.7 H RBC 5.71 H RDW 14.7 H Plt Count 476 H Lymph % (Auto) 6.2 L Absolute Neuts (auto) 16.6 H Seg Neutrophils % 88.4 H Chloride 96 L Anion Gap 20 H Glucose 151 H Calcium 10.6 H Alkaline Phosphatase 129 H Total Protein 8.9 H Urine Protein 100 H Urine Blood LARGE H Ur Leukocyte Esterase LARGE H Discharge - Discharge Clinical Impression: Generalized abdominal pain, Ventral hernia without obstruction or gangrene Vomiting Qualifiers: Vomiting type: unspecified Vomiting Intractability: non-intractable Nausea presence: with nausea Qualified Code(s): R11.2 - Nausea with vomiting, unspecified Hydronephrosis Qualifiers: Hydronephrosis type: unspecified Qualified Code(s): N13.30 - Unspecified hydronephrosis Condition: Stable Disposition: HOME, SELF-CARE Additional Instructions: PUSH FLUIDS. MAY PROGRESS TO A VERY BLAND DIET IN THE NEXT 6 HOURS -- MAY EAT, BANANAS, RICE, APPLESAUCE, TOAST/CRACKERS, JELLO. RETURN IF WORSENING AND INTRACTABLE VOMITING OR WORSENING ABDOMINAL PAIN. FOLLOW UP WITH PRIMARY CARE ON THURSDAY. Prescriptions: Ondansetron [Zofran Odt 4 mg Tablet] 1 - 2 tab PO Q4H PRN #15 tab.rapdis PRN Reason: For Nausea/Vomiting Forms: Return to Work Referrals: NOVA SOTELO MD [Primary Care Provider] - Follow up in 3-5 days
[2019-10-15 11:58] VITALS: BP 112/66
== END 2019-10-15 11:58 | disposition home or self-care (01) ==
LOC: ER 00:49
DX: N13.2 Hydronephrosis with renal and ureteral calculous obstruction (principal); K43.9 Ventral hernia without obstruction or gangrene; K21.9 Gastro-esophageal reflux disease without esophagitis; Z79.899 Other long term (current) drug therapy; R11.2 Nausea with vomiting, unspecified; D72.829 Elevated white blood cell count, unspecified; R61 Generalized hyperhidrosis; R10.816 Epigastric abdominal tenderness; R10.814 Left lower quadrant abdominal tenderness; R10.84 Generalized abdominal pain; Z87.19 Personal history of other diseases of the digestive system; Z98.51 Tubal ligation status
CPT/HCPCS: 36415; 83690; 85025; 80053; 81001; 74177; J2270; J2405; J7030; 96361; 96374; 96375; 99284

== ENCOUNTER 2020-05-24 23:12 | Emergency (ER) | payer SELFPAY ==
[2020-05-24] MEDS ORDERED: HYDROCODONE/ACETAMINOPHEN 5-325 MG TABLET PO ONE (23:59)
--- NOTE | 2020-05-25 | ER Document Report ---
ED Medical Screen (RME) - General Chief Complaint: Abdominal Pain Stated Complaint: LOWER BACK PAIN/ABDOMINAL PAIN Time Seen by Provider: 05/24/20 23:57 Primary Care Provider: NOVA SOTELO MD [Primary Care Provider] - Follow up as needed Notes: Patient presents complaining of left flank pain that wraps around to left side of abdomen that started around 9 PM tonight. Patient denies any fever nausea or vomiting. Patient denies any urinary symptoms. I have greeted and performed a rapid initial assessment of this patient. A comprehensive ED assessment and evaluation of the patient, analysis of test results and completion of the medical decision making process will be conducted by additional ED providers. TRAVEL OUTSIDE OF THE [place] IN LAST 30 DAYS: No - Related Data Allergies/Adverse Reactions: No Known Allergies Allergy (Verified 10/15/19 07:39) Home Medications: reflux med Past Medical History - Social History Family history: Reviewed & Not Pertinent - Past Medical History Cardiac Medical History: Denies: Hx Coronary Artery Disease, Hx Heart Attack, Hx Hypertension Pulmonary Medical History: Denies: Hx Asthma, Hx Bronchitis, Hx COPD, Hx Pneumonia, Hx Tuberculosis Neurological Medical History: Denies: Hx Cerebrovascular Accident, Hx Seizures Endocrine Medical History: Denies: Hx Diabetes Mellitus Type 1, Hx Diabetes Mellitus Type 2 Renal/ Medical History: Reports: Hx Kidney Stones. Denies: Hx Peritoneal Dialysis GI Medical History: Reports: Hx Gastroesophageal Reflux Disease, Hx Hiatal Hernia Musculoskeltal Medical History: Reports Hx Arthritis - Back Psychiatric Medical History: Reports: Hx Depression Denies: Hx Schizophrenia Past Surgical History: Reports: Hx Abdominal Surgery - gangrene, Hx Section, Hx Herniorrhaphy, Hx Orthopedic Surgery - Carpel tunnel, Hx Tubal Ligation. Denies: Hx Hysterectomy, Hx Pacemaker - Immunizations Immunizations up to date: Yes Hx Diphtheria, Pertussis, Tetanus Vaccination: Yes Physical Exam - Vital signs Vitals: Temp Pulse Resp BP Pulse Ox 98.6 F 73 16 144/89 H 100 05/24/20 23:16 05/24/20 23:16 05/24/20 23:16 05/24/20 23:16 05/24/20 23:16 - Back Back: CVA tenderness - Left Course - Vital Signs Vital signs: Temp Pulse Resp BP Pulse Ox 98.6 F 73 16 144/89 H 100 05/24/20 23:16 05/24/20 23:16 05/24/20 23:16 05/24/20 23:16 05/24/20 23:16 Doctor's Discharge - Discharge Referrals: NOVA SOTELO MD [Primary Care Provider] - Follow up as needed
[2020-05-25 01:53] LABS: ABSOLUTE BASOPHILS # (AUTO) 0.1 10^3/uL (0.0-0.2); ABSOLUTE EOSINOPHILS # (AUTO) 0.1 10^3/uL (0.0-0.6); ABSOLUTE LYMPHOCYTES (AUTO) 1.1 10^3/uL (0.5-4.7); ABSOLUTE MONOCYTES (AUTO) 0.3 10^3/uL (0.1-1.4); ABSOLUTE NEUT (AUTO) 11.2 10^3/uL (1.7-8.2); BASOPHILS % (AUTO) 0.5 % (0-2); EOSINOPHILS % (AUTO) 0.7 % (0-6); HEMATOCRIT 37.7 % (36.0-47.0); HEMOGLOBIN 12.2 g/dL (12.0-15.5); LYMPHOCYTES % (AUTO) 8.8 % (13-45); MEAN CORPUSCULAR HEMOGLOBIN 25.2 pg (27.0-33.4); MEAN CORPUSCULAR HGB CONC 32.2 g/dL (32.0-36.0); MEAN CORPUSCULAR VOLUME 78 fl (80-97); MONOCYTES % (AUTO) 2.1 % (3-13); PLATELET COUNT 320 10^3/uL (150-450); RED BLOOD COUNT 4.83 10^6/uL (3.72-5.28); RED CELL DISTRIBUTION WIDTH 16.9 % (11.5-14.0); SEGMENTED NEUTROPHILS % (AUTO) 87.9 % (42-78); TOTAL CELLS COUNTED % (AUTO) 100 %; WHITE BLOOD COUNT 12.7 10^3/uL (4.0-10.5)
[2020-05-25 02:05] LABS: ALBUMIN 4.3 g/dL (3.5-5.0); ALKALINE PHOSPHATASE 106 U/L (38-126); ANION GAP 9 (5-19); ASPARTATE AMINO TRANSFERASE 20 U/L (14-36); BILIRUBIN,TOTAL 0.5 mg/dL (0.2-1.3); BLOOD UREA NITROGEN 25 mg/dL (7-20); CALCIUM 9.1 mg/dL (8.4-10.2); CARBON DIOXIDE 23 mmol/L (22-30); CHLORIDE 104 mmol/L (98-107); GLUCOSE 103 mg/dL (75-110); TOTAL PROTEIN 7.9 g/dL (6.3-8.2)
[2020-05-25 02:17] LABS: APPEARANCE,URINE CLOUDY; BILIRUBIN,URINE NEGATIVE (NEGATIVE); COLOR,URINE YELLOW; GLUCOSE, URINE NEGATIVE (NEGATIVE); KETONES,URINE NEGATIVE (NEGATIVE); LEUKOCYTE ESTERASE,URINE LARGE (NEGATIVE); NITRITE,URINE NEGATIVE (NEGATIVE); PROTEIN,URINE 100 mg/dL (NEGATIVE); URINE SPECIFIC GRAVITY 1.004; UROBILINOGEN,URINE NEGATIVE mg/dL (<2.0)
[2020-05-25] MEDS ORDERED: ONDANSETRON HCL INJ/PF 4 MG/2 ML SDV IV ONE (05:39)
[2020-05-25] MEDS ORDERED: HYDROMORPHONE HCL INJ/PF 2 MG/ML AMPULE IV ONE (05:39)
--- NOTE | 2020-05-25 05:46 | ER Document Report ---
ED General - General TRAVEL OUTSIDE OF THE [place] IN LAST 30 DAYS: No - Related Data Home Medications: reflux med <GEM CALHOUN - Last Filed: 05/25/20 05:40> <JACKIE ADAME - Last Filed: 05/25/20 09:06> - General Chief Complaint: Abdominal Pain Stated Complaint: LOWER BACK PAIN/ABDOMINAL PAIN Time Seen by Provider: 05/24/20 23:57 Primary Care Provider: NOVA SOTELO MD [Primary Care Provider] - Follow up as needed - HPI Notes: 45-year-old female history of distant unknown abdominal surgery possibly intestinal perforation presents with approximately 5 hours of constant severe pain in left flank radiating to left lower quadrant without associated symptoms or prior episodes. Patient denied having any vomiting prior to being given Percocet in ED. Patient endorses having few loose stools today. patient denies fever, dysuria, frequency, urgency, hematuria, vaginal bleeding, vaginal disc harge, recent antibiotics, recent hospitalizations, immune compromise, trauma, dizziness, syncope, melena, bright red blood per rectum (GEM CALHOUN A) - Related Data Allergies/Adverse Reactions: No Known Allergies Allergy (Verified 10/15/19 07:39) Past Medical History - General Information source: Patient - Social History Smoking Status: Never Smoker Family History: Reviewed & Not Pertinent, DM Patient has homicidal ideation: No - Past Medical History Cardiac Medical History: Denies: Hx Coronary Artery Disease, Hx Heart Attack, Hx Hypertension Pulmonary Medical History: Denies: Hx Asthma, Hx Bronchitis, Hx COPD, Hx Pneumonia, Hx Tuberculosis Neurological Medical History: Denies: Hx Cerebrovascular Accident, Hx Seizures Endocrine Medical History: Denies: Hx Diabetes Mellitus Type 1, Hx Diabetes Mellitus Type 2 Renal/ Medical History: Reports: Hx Kidney Stones. Denies: Hx Peritoneal Dialysis GI Medical History: Reports: Hx Gastroesophageal Reflux Disease, Hx Hiatal Hernia Musculoskeletal Medical History: Reports Hx Arthritis - Back Psychiatric Medical History: Reports: Hx Depression Denies: Hx Schizophrenia Past Surgical History: Reports: Hx Abdominal Surgery - gangrene, Hx Section, Hx Herniorrhaphy, Hx Orthopedic Surgery - Carpel tunnel, Hx Tubal Ligation. Denies: Hx Hysterectomy, Hx Pacemaker - Immunizations Immunizations up to date: Yes Hx Diphtheria, Pertussis, Tetanus Vaccination: Yes <GEM CALHOUN - Last Filed: 05/25/20 05:40> Review of Systems <GEM CALHOUN - Last Filed: 05/25/20 05:40> - Review of Systems Notes: REVIEW OF SYSTEMS: CONSTITUTIONAL : Denies fever, chills, or sweats. EENT: Denies recent cold/sinus symptoms, denies throat pain CARDIOVASCULAR: Denies chest pain, KACI RESPIRATORY: Denies cough, denies shortness of breath. GASTROINTESTINAL: + abdominal pain, +diarrhea GENITOURINARY: Denies difficulty urinating, painful urination. FEMALE GENITOURINARY: Denies abnormal vaginal bleeding, vaginal discharge. MUSCULOSKELETAL: Denies neck pain, back pain. SKIN: Denies rash or skin lesions. HEMATOLOGIC : Denies easy bruising or bleeding. LYMPHATIC: Denies swollen, enlarged glands. NEUROLOGICAL: Denies headache, denies change in gait. PSYCHIATRIC: Denies anxiety or stress or depression. (GEM CALHOUN) Physical Exam <CALHOUN,GEM Anselmo - Last Filed: 05/25/20 05:40> - Vital signs Vitals: Temp Pulse Resp BP Pulse Ox 98.6 F 73 16 144/89 H 100 05/24/20 23:16 05/24/20 23:16 05/24/20 23:16 05/24/20 23:16 05/24/20 23:16 - Notes Notes: PHYSICAL EXAMINATION: GENERAL: Middle-aged woman appearing uncomfortable from abdominal pain but in no acute distress. HEAD: Atraumatic, normocephalic. EYES: Pupils equal round and appropriate constriction, sclera anicteric, conjunctiva are normal. ENT: nares patent, moist mucous membranes. NECK: Normal range of motion, supple without lymphadenopathy LUNGS: Breath sounds clear to auscultation bilaterally and equal. No wheezes rales or rhonchi. HEART: Regular rate and rhythm without murmurs ABDOMEN: Soft, healed nontender laparotomy scar, large right ventral hernia easily reducible without any tenderness, left lower quadrant tenderness without guarding or rebound, no CVA tenderness EXTREMITIES: Normal range of motion, no pitting or edema. No cyanosis. NEUROLOGICAL: Awake, alert, conversing appropriately, moves all extremities spontaneously. PSYCH: Normal mood, normal affect. SKIN: Warm, Dry, normal turgor, no rashes or lesions noted. (GEM CALHOUN) Course - Laboratory Result Diagrams: 05/25/20 01:38 05/25/20 01:38 <GEM CALHOUN - Last Filed: 05/25/20 05:40> - Laboratory Result Diagrams: 05/25/20 01:38 05/25/20 01:38 - Diagnostic Test Radiology reviewed: Image reviewed <JACKIE ADAME - Last Filed: 05/25/20 09:06> - Re-evaluation Re-evalutation: 05/25/20 05:45 Left lower quadrant and left flank pain without CVA tenderness, associated with diarrhea, rule out pyelo, diverticulitis, nephrolithiasis. Patient otherwise well-appearing, vital signs normal. UA with large bacteria and WBCs, but could be secondary to contamination, will give empiric antibiotics pending CT scan. (GEM CALHOUN) 05/25/20 08:[address] scan results. Patient's abdomen shows no rebound tenderness but some left flank pain noted. Minimal guarding patient has no fever or chills or any problems with nausea and vomiting at this time. Of note is a 0.4 cm left ureteral stone near the UVJ with some hydronephrosis. Patient also has noted chronic changes of herniations in her abdomen no acute process noted otherwise. (JACKIE ADAME) - Vital Signs Vital signs: Temp Pulse Resp BP Pulse Ox 98.7 F 83 16 129/66 H 99 05/25/20 03:19 05/25/20 03:19 05/25/20 03:19 05/25/20 03:19 05/25/20 06:03 - Laboratory Laboratory results interpreted by me: 05/25/20 05/25/20 05/25/20 01:38 01:38 01:38 WBC 12.7 H MCV 78 L MCH 25.2 L RDW 16.9 H Lymph % (Auto) 8.8 L [place] % (Auto) 2.1 L Absolute Neuts (auto) 11.2 H Seg Neutrophils % 87.9 H Sodium 136.1 L BUN 25 H Creatinine 1.47 H Est GFR ( Amer) 47 L Est GFR (MDRD) Non-Af 39 L Urine Protein 100 H Urine Blood MODERATE H Ur Leukocyte Esterase LARGE H 05/25/20 08:52 Patient has an elevated white blood cell count and a large amount of blood in her urine along with white blood cells and bacteria. Patient was given a liter of IV fluids along with IV Cipro Floxin and IV ketorolac and Flomax. Patient also was given IV morphine. Patient reports that this time she is pain-free. (JACKIE ADAME) Discharge <GEM CALHOUN - Last Filed: 05/25/20 05:40> <JACKIE ADAME - Last Filed: 05/25/20 09:06> - Discharge Clinical Impression: Calculus of distal left ureter, Abdominal pain, Nausea & vomiting, UTI (urinary tract infection) Condition: Stable Disposition: HOME, SELF-CARE Additional Instructions: Nausea or Vomiting, Nonspecific Vomiting (or nausea without vomiting) can be caused by many different problems. Of course, it can mean that something's wrong with the stomach, such as "stomach flu," ulcers, or inflammation. But it can also be a symptom of a problem that has nothing to do with the stomach or intestines. Vomiting is common with severe headaches, earaches, and tonsillitis. We see it with pneumonia or heart attacks. Drugs can cause nausea. Many abdominal problems cause vomiting; for example, gallstones, kidney stones, pancreatitis, and intestinal obstruction (blocked bowels). In most cases, curing the vomiting depends on fixing the problem that caused it. For temporary relief, we may use an anti-nausea medicine. For home use, we can prescribe suppositories, chewable pills, pills that dissolve in the mouth, or liquid anti-nausea drugs. If the vomiting seems to be caused by a problem in the stomach, acid-suppressing drugs may be prescribed as well. It's important to avoid dehydration. Sip clear liquids. Take increasing amounts of fluid over the first 24 hours. Then start small amounts of bland foods (such as dry toast, applesauce, mashed potato). Avoid aspirin, tobacco, and alcohol. Gradually resume your usual diet. If the vomiting worsens, if the problem that's making you vomit worsens, or if there's evidence of bleeding in the stomach (such as black, tarry stool, bloody or black vomit, or lightheadedness), you should return immediately. Call your doctor if you aren't improved in 24 to 36 hours. Urinary Tract Infection Your evaluation indicates that you have a urinary tract infection. This is due to germs growing in the bladder. This is a common problem. This infection usually responds quickly to antibiotics. Your antibiotic should be taken exactly as prescribed. Drink plenty of fluids -- three to four quarts a day. Occasionally, a bladder anesthetic will be prescribed to help stop the feeling of urgency until the antibiotic has a chance to clear the infection. This may cause your urine to be dark orange. Certain urine infections require a culture. If the doctor obtained a c ulture, the results will be back in two days. You should call to see if a change in treatment is needed. A repeat urinalysis after you finish treatment is often recommended. The physician will let you know if further testing is required. Call the doctor if you develop fever, chills, flank pain, inability to urinate, or blood in the urine. Kidney Stone You are passing or have passed a kidney stone. These stones are usually due to increased calcium or uric acid concentrations in your urine. Stones within the kidney itself are not painful. The pain occurs as the stone leaves the kidney to pass down the long tube, called the ureter, leading to the bladder. If the stone is small, it will usually pass by itself. Most patients can pass the stone at home. You will usually receive medications for pain, nausea or vomiting, and sometimes a medication to assist in passing the kidney stone. However, if the pain is very severe or if vomiting prevents you from taking oral pain medications, you may need to return for further treatment. Drink three or four quarts of fluids per day. You will be given pain medication (if needed) and urine strainers. Strain all your urine to see if the stone passes. If your doctor has asked you to bring the stone in for analysis, return with the stone once it has passed. Return if pain or vomiting become severe, if you develop a high fever, if you are unable to pass your urine, or if other unusual symptoms occur. Prescriptions: Ciprofloxacin HCl [Cipro 500 mg Tablet] 500 mg PO BID #20 tablet Tamsulosin HCl [Flomax 0.4 mg Cap.sr] 0.4 mg PO DAILY #7 cap.sr.24h Ibuprofen [Motrin 800 mg Tablet] 800 mg PO Q8H PRN #21 tablet PRN Reason: pain Hydrocodone/Acetaminophen [[place] 5-325 mg Tablet] 1 tab PO QID PRN #12 tablet PRN Reason: Metoclopramide HCl [Reglan 10 mg Tablet] 10 mg PO QID PRN #20 tablet PRN Reason: Referrals: NOVA SOTELO MD [Primary Care Provider] - Follow up as needed
--- NOTE | 2020-05-25 06:49 | RADIOLOGY REPORT (SQ) ---
EXAM DESCRIPTION: CT ABDOMEN PELVIS WITHOUT IV CONTRAST COMPLETED DATE/TME: 05/25/2020 05:39 CLINICAL HISTORY: left flank/llq pain COMPARISON: 10/15/2019 TECHNIQUE: CT of the abdomen and pelvis without IV contrast. Evaluation of the solid organs and vasculature is suboptimal due to lack of IV contrast. FINDINGS: Lung Bases: The visualized lung bases are clear. Bones: Degenerative endplate spondylosis. Abdomen: Liver: Hepatomegaly with diffusely decreased density. Gallbladder: Calcified gallstones. Spleen, Pancreas, and Adrenal Glands: The spleen, pancreas, and adrenal glands are unremarkable. Kidneys: Chronic right hydronephrosis with staghorn right renal calculus. There is a 0.4 cm obstructing calculus at the left UVJ producing moderate left hydroureter and hydronephrosis. Vasculature: The aorta and IVC have normal caliber and position. Stomach: The stomach and duodenum have normal course. Other: No free intraperitoneal air. No free fluid or lymphadenopathy. -Stranding/edema with in the anterior abdominal wall subcutaneous soft tissues. Which is mildly increased. Pelvis: Bladder: Urinary bladder is unremarkable. Bowel: Large ventral hernia containing dilated loops of small bowel, nondilated large bowel and mesenteric fat as well as small amount of free fluid and no definite transition point identified. There is a surgical anastomosis within the loops of bowel in the hernia. Mild wall thickening of the loops of small bowel. Appendix: No definitely identified. Pelvis: Uterus is not enlarged. IMPRESSION: 1. There is a 0.4 cm obstructing calculus at the left UVJ producing moderate left hydroureter and hydronephrosis. 2. Chronic right hydronephrosis with staghorn right renal calculus. 3. Redemonstrated large ventral hernia containing dilated and nondilated loops of small bowel without abrupt transition point as well as nondilated large bowel. Small amount of fluid and mild intermittent wall thickening of the loops of small bowel. These findings may indicate a component of chronic partial obstruction or nonspecific enteritis. 4. Interval increase in edema within the anterior abdominal wall subcutaneous soft tissues may indicate panniculitis. 5. Hepatomegaly with hepatic steatosis. This exam was performed according to our departmental dose-optimization program, which includes automated exposure control, adjustment of the mA and/or kV according to patient size and/or use of iterative reconstruction technique.
[2020-05-25] MEDS ORDERED: NORMAL SALINE 1000 ML 1,000 ML IV ONE (07:52)
[2020-05-25] MEDS ORDERED: TAMSULOSIN HCL 0.4 MG CAP.SR.24H PO ONE (07:53)
[2020-05-25] MEDS ORDERED: KETOROLAC TROMETHAMINE INJ/PF 30 MG/1 ML SDV IV ONE (07:53)
[2020-05-25] MEDS ORDERED: CIPROFLOXACIN 400 MG/D5W RTU 400 MG/200 ML RTUPB IV ONE (07:54)
[2020-05-25 09:46] VITALS: BP 103/66
== END 2020-05-25 09:54 | disposition home or self-care (01) ==
LOC: ER 23:12
DX: N39.0 Urinary tract infection, site not specified (principal); N13.2 Hydronephrosis with renal and ureteral calculous obstruction; R10.9 Unspecified abdominal pain; R10.32 Left lower quadrant pain; R19.7 Diarrhea, unspecified; K43.9 Ventral hernia without obstruction or gangrene; R11.2 Nausea with vomiting, unspecified
CPT/HCPCS: 99284; 96375; 96365; 96366; 36415; 83690; 84703; 85025; 80053; 81001; 74176; J1885; J1170; J2405; J7030; J0744